=== PATIENT | male | born 1940 | race Caucasian/White ===

== ENCOUNTER 2019-04-15 20:34 | Emergency (ER) | payer MEDICARE, OTHER, SELFPAY ==
[2019-04-15 20:45] VITALS: BP 137/74; PULSE 67; RESP 16; TEMP 36.9; O2SAT 97; BMI 27.7
[2019-04-15 22:12] LABS: Add Manual Diff / Slide Review NO; Basophils Absolute Auto 100 /uL (0-100); Basophils Percent Auto 0.9 % (0-2); Eosinophils Absolute Auto 400 /uL (0-450); Eosinophils Percent Auto 3.2 % (2-4); Hematocrit 38.8 % (41-53); Hemoglobin 13.1 g/dL (13.5-17.5); Lymphocytes Absolute Auto 2000 /uL (1100-4500); Lymphocytes Percent Auto 16.1 % (25-40); Mean Corpuscular HGB Conc 33.8 % (30-36); Mean Corpuscular Hemoglobin 32.2 PG (26-34); Mean Corpuscular Volume 95.4 fL (80-100); Monocytes Absolute Auto 1300 /uL (0-900); Neutrophils Absolute Auto 8400 /uL (1500-7000); Neutrophils Percent Auto 68.8 % (50-75); Platelet Count 235 X10^3/uL (150-400); Red Blood Cell Count 4.07 X10^6/uL (4.5-5.9); Red Cell Distribution Width 13.2 % (11.6-14.8); White Blood Cell Count 12.1 X10^3/uL (4.5-11.0)
--- NOTE | 2019-04-15 22:15 | ED.RECABL ---
HPI - Recheck/Abnormal Lab/Rx General Chief Complaint: Recheck/Abnormal Lab/Rx Stated Complaint: states blood clot after partial lung lobectomy Time Seen by Provider: 04/15/19 22:15 Source: patient Mode of arrival: Ambulatory Limitations: no limitations History of Present Illness HPI narrative: The patient underwent surgery about 5 weeks ago for lung cancer. He underwent RLL lobectomy at [place], [place]. He developed what this is earlier today. He had bright red blood. As the day goes on, the cough and hemoptysis has decreased. He has no associated chest pain or dyspnea. He has no lower extremity edema or calf tenderness. He is not anticoagulated. He has prior history of left lower lobe abscess at age 14. He quit smoking decades ago. He is having no fever or chills with current symptoms. He does not feel ill. He has not had issues with hemoptysis since the surgery. He had labs done by his doctor earlier today, he apparently had a high D-dimer. He has no history of PE, DVT, and he has no lower extremity discomfort at this time. 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 He explained the scarring from that prior abscesses left lung is scar tissue. The scar tissue can crack complete. During part is evaluation of assumed he had some bleeding from that area. Related Data Previous Rx's Medication Instructions Recorded amoxicillin-pot clavulanate 1 tab PO BID #14 tab 04/16/19 [Augmentin] Review of Systems Review of Systems ROS Unobtainable: All systems reviewed & are unremarkable except as noted in HPI and below Constitutional Constitutional: Denies chills, Denies fever(s), Denies lethargy and Denies weakness Eyes Eyes: Denies change in vision and Denies loss of vision ENT Ears, Nose, Mouth, and Throat: Denies change in voice, Denies epistaxis, Denies neck pain and Denies sore throat Cardiovascular Cardiovascular: Denies chest pain, Denies irregular heart rhythm, Denies lightheadedness, Denies palpitations, Denies dyspnea and Denies orthopnea Respiratory Respiratory: Reports cough, Denies dyspnea and Denies wheezing Comments: Hemoptysis Gastrointestinal Gastrointestinal: Denies abdominal pain, Denies change in bowel habits, Denies diarrhea, Denies nausea and Denies vomiting Genitourinary Comments: No dysuria Musculoskeletal Musculoskeletal: Denies back pain and Denies neck pain Integumentary/Breasts Skin/Breast: Denies erythema and Denies rash Neurologic Neurologic: Denies confusion, Denies loss of vision and Denies weakness Psychiatric Psychiatric: Denies anxiety, Denies confusion and Denies depression Endocrine Endocrine: Denies palpitations Allergic/Immunologic Allergic/Immunologic: Denies wheezing [facility] Medical History Hypertension (Acute) Lung abscess (Acute) Lung cancer (Acute) Surgical History History of lung surgery (Acute) Social History Smoking Status: Former smoker Social History Smoking Status: Former smoker Exam Initial Vital Signs Initial Vital Signs: Vital Signs Temperature 98.5 F 04/15/19 20:45 Pulse Rate 67 04/15/19 20:45 Respiratory Rate 16 04/15/19 20:45 Blood Pressure 137/74 04/15/19 20:45 Pulse Oximetry 97 04/15/19 20:45 Const General: cooperative and well developed Nutritional Appearance: well nourished Orientation: alert, awake and oriented x3 HENMT Head: normocephalic and atraumatic Ears: external ears normal and TM's normal bilaterally Nose: external nose normal Face and sinus: sinuses nontender, face symmetric and No dry mucous membranes Mouth: oral mucosae normal and moist mucous membranes Teeth and gingiva: dentition normal Throat: tonsils normal and uvula midline Eyes General: appearance normal, both eyes and all related structures Eyelids: eyelids normal Conjunctivae: conjunctivae normal Sclera: sclerae normal Pupils: PERRL EOM: EOM intact bilaterally Neck Neck: normal visual inspection, trachea midline, No lymphadenopathy and No JVD Lymphatic: No lymphedema Chest Chest: normal inspection of the chest Resp Effort & Inspection: normal respiratory effort and able to speak in complete sentences Auscultation: clear to auscultation bilaterally, no rales, no rhonchi and no wheezes Cardio Rate: regular rate Rhythm: regular rhythm Heart Sounds: no click, no gallops, no murmurs and no rubs Pulses: normal peripheral pulses GI Inspection: non-distended Palpation: soft, no hepatosplenomegaly, No guarding, No pulsatile mass and No tender Auscultation: normal bowel sounds Back/Spine/Pelvis Back: No CVA tenderness Skin General: no rashes or lesions noted, No jaundice and No petechiae Neuro General: alert, oriented x3, gait normal and no focal motor deficits Speech: speech normal Extrem General: no clubbing, cyanosis or edema Other: Normal peripheral pulses Psych Appearance: well kempt Mental Status: mental status grossly normal Attitude: cooperative Thought Content: normal Judgment: judgment good Course Course Course Narrative: 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 Chest CT shows no evidence of PE. There is no bronchopleural fistula. Area noted along the right mediastinum, possibly seroma. I started the patient on Augmentin due to the hemoptysis. He will be discharged home on the same with instructions to follow up with his own doctor for re-evaluation next week. I have advised him to expect more hemoptysis but expect the hemoptysis to quickly resolve Orders Ordered: ED Orders 04/15/19 22:00 Complete Blood Count AUTO DIFF Stat Comprehensive Metabolic Panel Stat D Dimer Stat Partial Thromboplastin Time Stat Prothrombin Time INR Stat 04/15/19 22:24 CT angio chest PE protocol Stat Sodium Chloride (Normal Saline 0.9%) 1,000 mls @ 250 mls/hr IV CONT BETH Last Infusion: 04/15/19 23:46 Dose: 250 mls/hr Documented by: Admin: 04/15/19 22:57 Dose: 250 mls/hr Documented by: MADHAVI Discontinued Medications Amoxicillin/Clavulanate Potassium (Augmentin 875-125 Mg) 1 tab PO NOW ONE Stop: 04/16/19 01:06 Last Admin: 04/16/19 01:13 Dose: 1 tab Documented by: ANTON Vital Signs Vital signs: Vital Signs - 8 hr 04/15/19 20:45 Temperature 98.5 F Pulse Rate 67 Respiratory Rate 16 Blood Pressure 137/74 Pulse Oximetry 97 MDM - Recheck/Abnormal Lab/Rx Lab Data Result diagrams: 04/15/19 22:00 04/15/19 22:00 Labs: Lab Results 04/15/19 04/15/19 04/15/19 Range/Units 22:00 22:00 22:00 WBC 12.1 H (4.5-11.0) X10^3/uL RBC 4.07 L (4.5-5.9) X10^6/uL Hgb 13.1 L (13.5-17.5) g/dL Hct 38.8 L (41-53) % MCV 95.4 (80-100) fL MCH 32.2 (26-34) PG MCHC 33.8 (30-36) % RDW 13.2 (11.6-14.8) % Plt Count 235 (150-400) X10^3/uL Neut % (Auto) 68.8 (50-75) % Lymph % (Auto) 16.1 L (25-40) % [place] % (Auto) 11.0 (3-14) % Eos % (Auto) 3.2 (2-4) % Baso % (Auto) 0.9 (0-2) % Neut # (Auto) 8400 H (8199-5573) /uL Lymph # (Auto) 2000 (9928-0209) /uL [place] # (Auto) 1300 H (0-900) /uL Eos # (Auto) 400 (0-450) /uL Baso # (Auto) 100 (0-100) /uL PT 13.3 H (10.1-12.7) SECONDS INR 1.1 (0.9-1.3) APTT 33 (26.4-36.2) SECONDS D-Dimer 313 H (<230) ng/mL Sodium 138 (137-145) mmol/L Potassium 3.7 (3.4-5.1) mmol/L Chloride 103 (98-107) mmol/L Carbon Dioxide 29 (22-32) mmol/L BUN 13 (9-20) mg/dL Creatinine 1.10 (0.66-1.25) mg/dL Estimated GFR > 60.0 (>60) mL/min BUN/Creatinine Ratio 11.8 (6-22) Glucose 121 H (80-110) mg/dL Calcium 9.0 (8.4-10.2) mg/dL Total Bilirubin 0.6 (0.2-1.3) mg/dL AST 23 (17-59) IU/L ALT 16 L (21-72) IU/L Alkaline Phosphatase 118 (38-126) U/L Total Protein 7.1 (6.3-8.2) g/dL Albumin 3.5 (3.5-5.0) g/dL Globulin 3.6 (1.7-4.1) g/dL Albumin/Globulin Ratio 1.0 (1.0-2.8) Imaging Data CTA Chest: Radiologist's impression: No evidence of PE. No bronchopleural fistula identified. Fluid collection along the right mediastinum, likely representing postop seroma. ECG Data Attestation: I personally reviewed and interpreted this ECG as follows: Interpretation: Normal sinus rhythm rate 65 beats per minute. Minimal voltage criteria for LVH. Nonspecific ST T wave changes. No ectopy. No acute ST elevation. Discharge Plan Departure Patient Disposition: Home Clinical Impression: Hemoptysis Instructions: DI for Hemoptysis Activity Restrictions/Additional Instructions: Augmentin 2 times daily as prescribed. Expect to cough up a little more blood, but expect the bloody cough to stop in the next few days. Follow up with your doctor next week to for re-evaluation. Return here if there is significant increase in the blood coming from her lungs. Prescriptions: New amoxicillin-pot clavulanate [Augmentin] 875-125 mg tablet 1 tab PO BID Qty: 14 RF: 0 Referrals: Luis Armando Boyle MD [Primary Care Provider] -
[2019-04-15 22:19] LABS: INR 1.1 (0.9-1.3); Prothrombin Time 13.3 SECONDS (10.1-12.7)
[2019-04-15 22:22] LABS: D Dimer 313 ng/mL (<230); PTT Partial Thromboplastin Tim 33 SECONDS (26.4-36.2)
--- NOTE | 2019-04-15 22:24 | DI.CT.S_ITS ---
PROCEDURE: CT ANGIO CHEST PE PROTOCOL INDICATIONS: Hemoptysis. RLL resection 5 weeks ago due to cancer. TECHNIQUE: After the administration of intravenous contrast, 2 mm thick sections acquired from the pulmonary apices to the posterior costophrenic angles. 3-dimensional maximum intensity projection (MIP) coronal and sagittal reformats were then acquired through the thorax. For radiation dose reduction, the following was used: automated exposure control, adjustment of mA and/or kV according to patient size. COMPARISON: None. FINDINGS: Image quality: Pulmonary arteries: Pulmonary arteries are normal in size, and demonstrate no intraluminal filling defects to suggest central pulmonary embolism. Lungs and pleura: There are postoperative changes from right upper lobe resection with a smoothly marginated medial right mediastinal collection measuring approximately 4.3 x 3.6 cm measuring 50 Hounsfield units. The opacified vessels are noted to be displaced away from this collection. No internal solid components or enhancement identified. This likely represents a postoperative fluid collection given recent surgery. Minimal, patchy dependent ground glass opacities are favored to represent atelectasis. Mild bibasilar bronchiectasis more pronounced on the left with minimal right basilar subpleural reticulation. No focal consolidation. There is a 4 mm peripheral nodule in the left upper lobe seen on image 106, series 5. No pneumothorax. Trace right pleural effusion. Central and peripheral airways are patent. Mucous is noted in the dependent portions of the mid trachea. Mediastinum: Heart size is normal, without pericardial effusion. Scattered atherosclerotic calcifications of the coronary arteries are noted. No mediastinal or hilar adenopathy. Thoracic aorta is normal in caliber and enhancement. Esophagus is normal in caliber, without hiatal hernia. Bones and chest wall: No suspicious bony lesions. Multilevel spondylosis of the imaged spine. No acute compression fractures. Ribs and thoracic spine appear intact throughout. Thyroid gland is unremarkable. No axillary or supraclavicular adenopathy. Abdomen: Surgical clips are noted in the midline upper abdomen near the gastroesophageal junction. Large exophytic left renal cysts. Remainder of the visualized upper abdominal solid organs appear normal in the early arterial phase of enhancement. IMPRESSION: 1. No acute pulmonary emboli. 2. Postoperative changes of right upper lobe resection with a smoothly marginated 4.3 x 3.6 cm higher than simple fluid attenuating focus along the medial margin of the right upper mediastinum likely representing a postoperative fluid collection. 3. Minimal right and mild left bibasilar traction bronchiectasis with minimal right basilar subpleural reticulation possibly representing early fibrotic change/scarring. 4. Minimal dependent atelectasis. No focal consolidation or acute air space disease. 5. Other chronic findings as above. No significant discrepancy with the manufacturing shift supervisor radiology preliminary report. Dictated by: Alexis Marin M.D. on 04/16/2019 at 9:09 Approved by: Alexis Marin M.D. on 04/16/2019 at 9:26
[2019-04-15 22:26] LABS: Alanine Aminotransferase 16 IU/L (21-72); Albumin 3.5 g/dL (3.5-5.0); Alkaline Phosphatase 118 U/L (38-126); Aspartate Aminotransferase 23 IU/L (17-59); BUN Creatinine Ratio 11.8 (6-22); Bilirubin Total 0.6 mg/dL (0.2-1.3); Blood Urea Nitrogen 13 mg/dL (9-20); Carbon Dioxide 29 mmol/L (22-32); Chloride 103 mmol/L (98-107); Estimated Glomerular Filt Rate > 60.0 mL/min (>60); Globulin 3.6 g/dL (1.7-4.1); Glucose 121 mg/dL (80-110); HEMOLYSIS < 15 (0-50); Potassium 3.7 mmol/L (3.4-5.1); Sodium 138 mmol/L (137-145); Total Protein 7.1 g/dL (6.3-8.2)
[2019-04-15] MEDS: SODIUM CHLORIDE 0.9% 1,000 ML 250 ML IV (22:57)
[2019-04-16] MEDS: AMOXICILLIN/CLAV 875/125 MG 1 TAB PO (01:13)
[2019-04-16 01:23] VITALS: BP 153/75; PULSE 66; O2SAT 98
== END 2019-04-16 01:23 | disposition home or self-care (01) ==
PROVIDERS: Emergency Provider Emergency Medicine; Family Provider Family Medicine; PCP Family Medicine
DX: R04.2 Hemoptysis (principal); Z98.890 Other specified postprocedural states; R07.9 Chest pain, unspecified; I10 Essential (primary) hypertension
CPT/HCPCS: 36415; 71275; 80053; 85025; 85379; 85610; 85730; 93005; 93010; 96360; 99283; 99285; Q9967

== ENCOUNTER 2019-07-27 11:28 | Emergency (ER) | payer MEDICARE, OTHER, SELFPAY ==
[2019-07-27 11:46] VITALS: BP 113/71; PULSE 87; RESP 15; TEMP 36.6; O2SAT 100; BMI 29.5
--- NOTE | 2019-07-27 11:49 | DI.RAD.S_ITS ---
PROCEDURE: XR CHEST 1V INDICATIONS: chest pain TECHNIQUE: One view of the chest was acquired. COMPARISON: [facility], RG, XR CXR 2 VIEW, 11/08/1978, 13:24. [facility], RG, XR CXR 1 VIEW, 10/12/1981, 13:27. [facility], RG, XR CXR 1 VIEW, 10/26/1983, 13:22. [facility], CT, CT ANGIO CHEST PE PROTOCOL, 04/15/2019, 22:29. FINDINGS: Surgical changes and devices: None. Lungs and pleura: Right-sided volume loss is seen, as before. No focal infiltrates are seen. No pneumothorax or large pleural effusion. Mediastinum: Mediastinal contours appear normal. Heart size is at the upper limits of normal. Bones and chest wall: No suspicious bony lesions. Age-appropriate bony degenerative changes are seen. Overlying soft tissues appear unremarkable. IMPRESSION: Right-sided volume loss, from prior lung resection. No acute abnormality is seen on this portable chest study. Dictated by: Eros Echavarria M.D. on 07/27/2019 at 11:38 Approved by: Eros Echavarria M.D. on 07/27/2019 at 11:40
--- NOTE | 2019-07-27 11:54 | ED_ITS ---
HPI - Chest Pain General Chief Complaint: Chest Pain Stated Complaint: 4 am L shoulder pain since throbbing Time Seen by Provider: 07/27/19 11:46 Source: patient Mode of arrival: Ambulatory Limitations: no limitations History of Present Illness HPI narrative: Patient is a 78-year-old male who presents with right shoulder pain. He says it woke him from his sleep this morning around 4:00 a.m.. It does not hurt to move he does feel like it's spreading a little to his chest now. He says he was not feeling well yesterday he thinks he has influenza but he has not yet been tested. For the last 4 days he has had chills and upper respiratory symptoms so he has been lying on the couch. Which is what he was doing yesterday. He denies any shortness of breath or cough. He is currently afebrile here. He did take aspirin prior to arrival he continues to have right shoulder pain which he says is deep inside the joint. Onset (ago): hour(s) Onset: during rest Related Data Previous Rx's Medication Instructions Recorded amoxicillin-pot clavulanate 1 tab PO BID #14 tab 04/16/19 [Augmentin] Allergies Allergy/AdvReac Type Severity Reaction Status Date / Time No Known Drug Allergies Allergy Verified 07/27/19 11:46 Review of Systems Review of Systems Narrative: GENERAL: Denies chills, fatigue, malaise, fever, sweats, travel HEENT: Denies sinus pain, ear pain, sore throat, difficulty swallowing, neck pain RESPIRATORY: Denies dyspnea, cough, wheezing, hemoptysis, sputum. CARDIOVASCULAR: Denies chest pain, palpitations, orthopnea, edema GASTROINTESTINAL: Denies nausea, vomiting, abdominal pain, diarrhea, constipation, melena. : Denies dysuria, frequency, incontinence, hematuria, urinary retention, flank pain. MUSCULOSKELETAL: See HPI SKIN: No rash, no erythema, no pruritus NEUROLOGIC: Denies weakness, dizziness, headache, numbness, change in speech, confusion PSYCHIATRIC: No concerning psychosocial issues. 12 point review of systems is negative except for those stated above and HPI Patient History Medical History Hypertension (Acute) Lung abscess (Acute) Lung cancer (Acute) Surgical History History of lung surgery (Acute) Social History Smoking Status: Former smoker Smoking Status: Former smoker alcohol intake frequency: holidays/special occasions only Substance Use Type: marijuana Exam Initial Vital Signs Initial Vital Signs: Vital Signs Temperature 97.8 F 07/27/19 11:46 Pulse Rate 87 07/27/19 11:46 Respiratory Rate 15 07/27/19 11:46 Blood Pressure 113/71 07/27/19 11:46 Pulse Oximetry 100 07/27/19 11:46 GENERAL: Alert pleasant well-appearing elderly male and in no acute distress. HEENT: Head atraumatic,EOMI, pupils reactive, face symmetric, moist mucous membranes CARDIOVASCULAR: Regular rate and rhythm without murmurs, rubs or gallops. RESPIRATORY: Breath sounds equal bilaterally, no wheezes rales or rhonchi. ABDOMEN: Soft, nontender. Normoactive bowel sounds all 4 quadrants. No guarding or rebound. EXTREMITIES: Normal range of motion, no clubbing or edema. Neurovascularly intact NEUROLOGICAL: Alert and oriented x4.Normal gait and speech. Cranial nerves II through XII grossly intact. SKIN: Warm, dry, no laceration, no petechiae, no rashes or lesions. Course Orders Ordered: ED Orders 07/27/19 11:49 XR chest 1V Stat EKG-12 Lead Stat 07/27/19 12:05 Complete Blood Count AUTO DIFF Stat Comprehensive Metabolic Panel Stat Lipase Stat Partial Thromboplastin Time Stat Prothrombin Time INR Stat Troponin & CK Cardiac Panel Stat 07/27/19 12:20 Influenza A & B (PCR) Stat Discontinued Medications Ketorolac Tromethamine (Toradol) 15 mg IV NOW ONE Stop: 07/27/19 13:22 Last Admin: 07/27/19 13:35 Dose: 15 mg Documented by: LOUIE Morphine Sulfate (Morphine) 2 mg IV NOW ONE Stop: 07/27/19 12:06 Last Admin: 07/27/19 12:34 Dose: 2 mg Documented by: LOUIE Vital Signs Vital signs: Vital Signs - 8 hr 07/27/19 11:46 07/27/19 12:30 07/27/19 13:30 Temperature 97.8 F Pulse Rate 87 63 62 Respiratory Rate 15 12 16 Blood Pressure 113/71 Blood Pressure [Left Arm] 120/67 104/73 Pulse Oximetry 100 97 97 MDM - Chest Pain Lab Data Attestation: I reviewed the patient's lab results. Result diagrams: 07/27/19 12:05 07/27/19 12:05 Labs: Lab Results 07/27/19 07/27/19 07/27/19 Range/Units 12: 12:05 12:05 WBC 5.3 (4.5-11.0) X10^3/uL RBC 4.62 (4.5-5.9) X10^6/uL Hgb 15.0 (13.5-17.5) g/dL Hct 42.4 (41-53) % MCV 91.8 (80-100) fL MCH 32.5 (26-34) PG MCHC 35.4 (30-36) % RDW 13.6 (11.6-14.8) % Plt Count 256 (150-400) X10^3/uL Neut % (Auto) 57.7 (50-75) % Lymph % (Auto) 24.2 L (25-40) % [place] % (Auto) 15.8 H (3-14) % Eos % (Auto) 1.0 L (2-4) % Baso % (Auto) 1.3 (0-2) % Neut # (Auto) 3000 (9390-9044) /uL Lymph # (Auto) 1300 (8809-4300) /uL [place] # (Auto) 800 (0-900) /uL Eos # (Auto) 100 (0-450) /uL Baso # (Auto) 100 (0-100) /uL PT 12.1 (10.1-12.7) SECONDS INR 1.0 (0.9-1.3) APTT 34 (26.4-36.2) SECONDS Sodium 140 (137-145) mmol/L Potassium 3.3 L (3.4-5.1) mmol/L Chloride 106 (98-107) mmol/L Carbon Dioxide 24 (22-32) mmol/L BUN 15 (9-20) mg/dL Creatinine 1.20 (0.66-1.25) mg/dL Estimated GFR 58.9 L (>60) mL/min BUN/Creatinine Ratio 12.5 (6-22) Glucose 108 (80-110) mg/dL Calcium 8.9 (8.4-10.2) mg/dL Total Bilirubin 0.5 (0.2-1.3) mg/dL AST 28 (17-59) IU/L ALT 17 (<50) IU/L Alkaline Phosphatase 90 (38-126) U/L Total Creatine Kinase 77 (55-170) U/L CK-MB (CK-2) TNP CK-MB (CK-2) Rel Index TNP Troponin I < 0.012 (0.01-0.034) ng/mL Total Protein 7.1 (6.3-8.2) g/dL Albumin 3.9 (3.5-5.0) g/dL Globulin 3.2 (1.7-4.1) g/dL Albumin/Globulin Ratio 1.2 (1.0-2.8) Lipase 67 (23-300) U/L Influenza A (RT-PCR) (NEGATIVE) Influenza B (RT-PCR) (NEGATIVE) 07/27/19 Range/Units 12:20 WBC (4.5-11.0) X10^3/uL RBC (4.5-5.9) X10^6/uL Hgb (13.5-17.5) g/dL Hct (41-53) % MCV (80-100) fL MCH (26-34) PG MCHC (30-36) % RDW (11.6-14.8) % Plt Count (150-400) X10^3/uL Neut % (Auto) (50-75) % Lymph % (Auto) (25-40) % [place] % (Auto) (3-14) % Eos % (Auto) (2-4) % Baso % (Auto) (0-2) % Neut # (Auto) (3703-3943) /uL Lymph # (Auto) (1498-7316) /uL [place] # (Auto) (0-900) /uL Eos # (Auto) (0-450) /uL Baso # (Auto) (0-100) /uL PT (10.1-12.7) SECONDS INR (0.9-1.3) APTT (26.4-36.2) SECONDS Sodium (137-145) mmol/L Potassium (3.4-5.1) mmol/L Chloride (98-107) mmol/L Carbon Dioxide (22-32) mmol/L BUN (9-20) mg/dL Creatinine (0.66-1.25) mg/dL Estimated GFR (>60) mL/min BUN/Creatinine Ratio (6-22) Glucose (80-110) mg/dL Calcium (8.4-10.2) mg/dL Total Bilirubin (0.2-1.3) mg/dL AST (17-59) IU/L ALT (<50) IU/L Alkaline Phosphatase (38-126) U/L Total Creatine Kinase (55-170) U/L CK-MB (CK-2) CK-MB (CK-2) Rel Index Troponin I (0.01-0.034) ng/mL Total Protein (6.3-8.2) g/dL Albumin (3.5-5.0) g/dL Globulin (1.7-4.1) g/dL Albumin/Globulin Ratio (1.0-2.8) Lipase (23-300) U/L Influenza A (RT-PCR) Flu a negative (NEGATIVE) Influenza B (RT-PCR) Flu b positive H (NEGATIVE) Imaging Data Chest x-ray: Radiologist's Impression: PROCEDURE: XR CHEST 1V INDICATIONS: chest pain TECHNIQUE: One view of the chest was acquired. COMPARISON: [facility], , XR CXR 2 VIEW, 11/08/1978, 13:24. [facility], RG, XR CXR 1 VIEW, 10/12/1981, 13:27. [facility], RG, XR CXR 1 VIEW, 10/26/1983, 13:22. [facility], CT, CT ANGIO CHEST PE PROTOCOL, 04/15/2019, 22:29. FINDINGS: Surgical changes and devices: None. Lungs and pleura: Right-sided volume loss is seen, as before. No focal infiltrates are seen. No pneumothorax or large pleural effusion. Mediastinum: Mediastinal contours appear normal. Heart size is at the upper limits of normal. Bones and chest wall: No suspicious bony lesions. Age-appropriate bony degenerative changes are seen. Overlying soft tissues appear unremarkable. IMPRESSION: Right-sided volume loss, from prior lung resection. No acute abnormality is seen on this portable chest study. Dictated by: Eros Echavarria M.D. on 07/27/2019 at 11:38 ECG Data Attestation: I personally reviewed and interpreted this ECG as follows: Prior ECG tracings: available for review Interpretation: Sinus rhythm rate 68 p.r. interval 177 QRS [address] elevation depression or T-wave inversions similar to previous EKG MDM Narrative Medical decision making narrative: Patient has been having pain for more than 6 hours, troponin is negative. Positive for influenza. Morphine has helped with his right shoulder pain. At this time he is out of the window to benefit from Tamiflu. Discharge Plan Departure Patient Disposition: Home Clinical Impression: Influenza B Discharge Date/Time: 07/27/19 13:58 Instructions: DI for Influenza -- Adult Activity Restrictions/Additional Instructions: *You have been diagnosed with influenza B *What to do: At this time no indication for any medication influenza will likely run its course. This is also likely contributing to her joint pain. Blood work and chest x-ray are overall reassuring. Recommend that you rest and fluids *Continue to take medications as directed Tylenol 650 mg every 4-6 hours if needed for pain or fever Ibuprofen 600 mg every 6-8 hours as needed for pain *Follow up with your primary care provider in 2-3 days *Return to ER if you should have increasing chest pain shortness of breath fever not controlled or any new, worsening or concerning symptoms Prescriptions: No Action amoxicillin-pot clavulanate [Augmentin] 875-125 mg tablet 1 tab PO BID Qty: 14 RF: 0 Referrals: Benitez Crook MD [Primary Care Provider] -
[2019-07-27 12:15] LABS: Add Manual Diff / Slide Review NO; Basophils Absolute Auto 100 /uL (0-100); Basophils Percent Auto 1.3 % (0-2); Eosinophils Absolute Auto 100 /uL (0-450); Hematocrit 42.4 % (41-53); Lymphocytes Absolute Auto 1300 /uL (1100-4500); Lymphocytes Percent Auto 24.2 % (25-40); Mean Corpuscular HGB Conc 35.4 % (30-36); Mean Corpuscular Hemoglobin 32.5 PG (26-34); Mean Corpuscular Volume 91.8 fL (80-100); Monocytes Absolute Auto 800 /uL (0-900); Monocytes Percent Auto 15.8 % (3-14); Neutrophils Absolute Auto 3000 /uL (1500-7000); Neutrophils Percent Auto 57.7 % (50-75); Platelet Count 256 X10^3/uL (150-400); Red Blood Cell Count 4.62 X10^6/uL (4.5-5.9); Red Cell Distribution Width 13.6 % (11.6-14.8); White Blood Cell Count 5.3 X10^3/uL (4.5-11.0)
--- NOTE | 2019-07-27 12:27 | PC.NURSE ---
woke 0400 with sharp throbbing pain right shoulder into chest feels like something was stuck there
[2019-07-27 12:30] VITALS: BP 120/67; PULSE 63; RESP 12; O2SAT 97
[2019-07-27] MEDS: MORPHINE 2 MG/ML INJ IV (12:34)
[2019-07-27 12:45] LABS: Prothrombin Time 12.1 SECONDS (10.1-12.7)
[2019-07-27 12:48] LABS: PTT Partial Thromboplastin Tim 34 SECONDS (26.4-36.2)
[2019-07-27 12:49] LABS: Alanine Aminotransferase 17 IU/L (<50); Albumin 3.9 g/dL (3.5-5.0); Albumin Globulin Ratio 1.2 (1.0-2.8); Alkaline Phosphatase 90 U/L (38-126); Aspartate Aminotransferase 28 IU/L (17-59); BUN Creatinine Ratio 12.5 (6-22); Bilirubin Total 0.5 mg/dL (0.2-1.3); Blood Urea Nitrogen 15 mg/dL (9-20); Calcium 8.9 mg/dL (8.4-10.2); Carbon Dioxide 24 mmol/L (22-32); Chloride 106 mmol/L (98-107); Creatine Kinase 77 U/L (55-170); Estimated Glomerular Filt Rate 58.9 mL/min (>60); Globulin 3.2 g/dL (1.7-4.1); Glucose 108 mg/dL (80-110); HEMOLYSIS < 15 (0-50); Lipase 67 U/L (23-300); Potassium 3.3 mmol/L (3.4-5.1); Sodium 140 mmol/L (137-145); Total Protein 7.1 g/dL (6.3-8.2)
[2019-07-27 12:55] LABS: Influenza A - CEPHEID Flu A NEGATIVE (NEGATIVE); Influenza B - CEPHEID Flu B POSITIVE (NEGATIVE)
[2019-07-27 13:01] LABS: Troponin I < 0.012 ng/mL (0.01-0.034)
[2019-07-27 13:30] VITALS: BP 104/73; PULSE 62; RESP 16; O2SAT 97
[2019-07-27] MEDS: KETOROLAC 60 MG/2 ML VIAL 15 MG IV (13:35)
== END 2019-07-27 13:58 | disposition home or self-care (01) ==
PROVIDERS: Emergency Provider Emergency Medicine; PCP Internal Medicine
DX: J10.1 Influenza due to other identified influenza virus with other respiratory manifestations (principal); M25.511 Pain in right shoulder; R07.9 Chest pain, unspecified
CPT/HCPCS: 36415; 71045; 80053; 82550; 83690; 84484; 85025; 85610; 85730; 87502; 93005; 96374; 96375; 99284; 99285; J1885; J2270

== ENCOUNTER → 2019-11-06 09:48 | Outpatient (CLI) | payer MEDICARE, OTHER, SELFPAY ==
--- NOTE | 2019-11-06 | DI.NM.S_ITS ---
PROCEDURE: NM TRIP PERF SPECT R&S PHARM Rest and pharmacological stress myocardial perfusion SPECT with gated imaging and ejection fraction RADIOPHARMACEUTICAL: 12 mCi Tc-99m tetrafosmin IV at rest and 24.7 mCi Tc-99m tetrafosmin IV at peak effect of pharmacological stress. [id number] was performed. INDICATIONS: Chest pain, unspecified TECHNIQUE: Radiopharmaceutical was injected at peak stress test, and also at rest. SPECT images were obtained. SPECT myocardial perfusion images were displayed in short axis, horizontal long axis, and vertical long axis views. Gated images were reviewed using [employer] software. COMPARISON: None. CARDIAC STRESS: A pharmacologic stress test was performed under the supervision of an attending staff, using an infusion of Lexiscan . Hemodynamic data: There is normal blood pressure and heart rate response to pharmacologic stress. Symptoms: The patient denied anginal chest pain. Aminophylline: Not used. EKG: Abnormal response with developing PVCs in form of bigeminy and up to 2 mm horizontal and downsloping ST depression in inferior and lateral leads.. FINDINGS: Raw data: There is good myocardial uptake of radiotracer. No significant motion artifacts. Mxoo-ki-[id number] ratio is 0.47 (normal is less than 0.38 for tetrafosmin tracer). Left ventricle function: Gated images demonstrate normal left ventricular wall thickening. No segmental wall motion abnormalities. No transient ischemic dilation; TID is 0.94 (normal less than 1.3). Left ventricle resting end diastolic volume is 141 mL. Left ventricle stress ejection fraction is 73% ; normal range is above 45%. Myocardial perfusion: There is a small size, mild perfusion defect from the apical to mid inferior and inferolateral defect on stress which is present to a lesser extent and ,mostly involving the apex at rest. This is consistent with ischemia. IMPRESSION: -Abnormal myocardial perfusion study. With evidence of small to moderate size, mild reversible ischemia in the mid to apical inferolateral wall. -SSS=4. -Mildly dilated left ventricle. -Abnormal lung heart ratio. Please correlate clinically. Dictated by: Luis Armando Snyder M.D. on 11/06/2019 at 18:47 Approved by: Luis Armando Snyder M.D. on 11/06/2019 at 18:55
== END ==
PROVIDERS: PCP Internal Medicine; Referring Provider Family Medicine; Visit Provider Family Medicine
DX: I25.9 Chronic ischemic heart disease, unspecified (principal); R07.9 Chest pain, unspecified; R94.39 Abnormal result of other cardiovascular function study; R60.9 Edema, unspecified
CPT/HCPCS: 78452; 93017; A9502; J2785

== ENCOUNTER → 2020-02-27 07:37 | Outpatient (CLI) | payer MEDICARE, OTHER, SELFPAY ==
--- NOTE | 2020-02-27 | DI.MRI.S_ITS ---
PROCEDURE: MR HEAD/BRAIN WO CON INDICATIONS: Dizziness and giddiness,Tremor, unspecified TECHNIQUE: Non-contrast axial T1 spin echo, axial T2 fast spin echo, sagittal and axial FLAIR, coronal T2 fast spin echo, axial gradient echo, axial diffusion and ADC through the brain. COMPARISON: None. FINDINGS: Image quality: Excellent. CSF spaces: Ventricles appear symmetric in size and shape. Basal cisterns are patent. No extra-axial fluid collections. Brain: No intracranial bleeds or mass effects. There is a right posterior parafalcine 12 mm diameter high T1 and low FLAIR/gradient echo signal intensity focus at the medial aspect of the right superior parietal lobe. There is cerebral volume loss for age. There are periventricular and deep white matter chronic small vessel ischemic changes. Brainstem appears normal. Diffusion-weighted images show no acute ischemic insults. No chronic ischemic insults. Normal intravascular flow voids are present. Skull and face: Calvarial bone marrow is normal in signal. Orbits are normal. Sinuses: Moderate right mastoid fluid. Sinuses and mastoids are otherwise clear. IMPRESSION: 1. No acute process. 2. No recent infarct. 3. Mild volume loss and small vessel ischemic disease. 4. Posterior parafalcine focus as described above. Differential considerations include small focus of calcification versus lipoma versus ossified meningioma. There is no associated mass effect. This could be further assessed with postcontrast brain MRI, if clinically indicated. 5. Right mastoid fluid. Dictated by: Monique Garcia M.D. on 02/27/2020 at 8:35 Approved by: Monique Garcia M.D. on 02/27/2020 at 8:38
== END ==
PROVIDERS: PCP Internal Medicine; Referring Provider Internal Medicine; Visit Provider Family Medicine
DX: R42 Dizziness and giddiness (principal); R25.1 Tremor, unspecified
CPT/HCPCS: 70551

== ENCOUNTER → 2020-03-25 15:08 | Outpatient (CLI) | payer MEDICARE, OTHER, SELFPAY ==
--- NOTE | 2020-03-25 15:16 | DI.RAD.S_ITS ---
PROCEDURE: XR KNEE RT 3V INDICATIONS: RT KNEE PAIN TECHNIQUE: 3 views of the knee were acquired. COMPARISON: None. FINDINGS: Bones: No fractures or dislocations. No suspicious bony lesions. Soft tissues: No joint effusion. No suspicious soft tissue calcifications. IMPRESSION: Mild degenerative knee joint space narrowing, best seen at the medial compartment. No effusion or loose body found. Dictated by: Mil Resendiz M.D. on 03/25/2020 at 16:36 Approved by: Mil Resendiz M.D. on 03/25/2020 at 16:36
== END ==
PROVIDERS: PCP Internal Medicine; Referring Provider Physician Assistant; Visit Provider Physician Assistant
DX: M25.561 Pain in right knee (principal)
CPT/HCPCS: 73562

== ENCOUNTER 2020-07-31 16:15 | Observation (INO) | payer MEDICARE, OTHER, SELFPAY ==
[2020-07-31] VITALS (12 sets, daily range): BP systolic 134–173; BP diastolic 64–78; PULSE 48–85; RESP 16–20; TEMP 36.5–36.8; O2SAT 96–99; BMI 27.8
--- NOTE | 2020-07-31 16:37 | DI.RAD.S_ITS ---
PROCEDURE: XR CHEST 2V INDICATIONS: Positive COVID TECHNIQUE: 2 views of the chest were acquired. COMPARISON: [facility], CR, XR CHEST 1V, 07/27/2019, 12:19. FINDINGS: Surgical changes and devices: Clips in the region of the gastric cardia which may be due to prior hernia repair or gastric bypass. Lungs and pleura: Question of subtle bilateral airspace opacity. No consolidative opacity. No pleural effusions or pneumothorax. Mediastinum: Mediastinal contours are normal. Heart size appears enlarged. Bones and chest wall: No suspicious bony abnormalities. Soft tissues appear unremarkable. IMPRESSION: Question of mild bilateral airspace opacity. Dictated by: Christiano Aly M.D. on 07/31/2020 at 16:19 Approved by: Christiano Aly M.D. on 07/31/2020 at 16:22
--- NOTE | 2020-07-31 18:12 | ED.URI ---
HPI - URI/Sore Throat General Chief Complaint: Upper Respiratory Symptoms Stated Complaint: covid positive Time Seen by Provider: 07/31/20 16:29 Source: patient Mode of arrival: Ambulatory Limitations: no limitations History of Present Illness HPI Narrative: 79M former smoker with history of COPD, lung CA, and partial lung resection presents with ongoing weakness, cough, and SOB over the past week or so. He and his have similar symptoms and both tested positive for COVID and were notified this morning. He has had chills, but denies any measured fever. He feels quite fatigued and significantly SOB with minimal exertion. He aches all over and denies N/V/D. Complaint: cough Onset (ago): day(s) Duration: constant and progressively worsening Severity: moderate Relieving factors: rest Exacerbating factors: exertion Able to tolerate fluids by mouth: Yes Context: sick contacts Associated symptoms: fever, chills, myalgias, cough and shortness of breath Treatments prior to arrival: none Related Data Home Medications Medication Instructions Recorded Confirmed amlodipine 5 mg PO DAILY 07/31/20 07/31/20 indomethacin 50 mg PO BID 07/31/20 07/31/20 trazodone 25 mg PO DAILY 07/31/20 07/31/20 citalopram 20 mg PO DAILY 08/01/20 08/01/20 citalopram 40 mg PO DAILY 08/01/20 08/01/20 Allergies Allergy/AdvReac Type Severity Reaction Status Date / Time No Known Drug Allergies Allergy Verified 07/31/20 16:33 Review of Systems Constitutional Constitutional: Reports body ache(s), Reports chills, Denies fatigue, Reports fever(s), Denies frequent falls, Reports lethargy and Reports weakness Eyes Eyes: Denies change in vision, Denies eye discharge, Denies irritation and Denies loss of vision ENT Ears, Nose, Mouth, and Throat: Denies change in voice, Denies dizziness, Denies neck pain, Denies sore throat and Denies throat swelling Cardiovascular Cardiovascular: Denies chest pain, Denies irregular heart rhythm, Denies lightheadedness, Denies palpitations, Reports dyspnea, Reports dyspnea on exertion and Denies orthopnea Respiratory Respiratory: Reports cough, Reports dyspnea, Reports dyspnea on exertion and Denies wheezing Gastrointestinal Gastrointestinal: Denies abdominal pain, Denies change in bowel habits, Denies diarrhea, Denies nausea and Denies vomiting Musculoskeletal Musculoskeletal: Denies neck pain and Denies numbness Integumentary/Breasts Skin/Breast: Denies pruritus, Denies erythema, Denies rash and Denies wounds Neurologic Neurologic: Denies behavioral changes, Denies confusion, Denies dizziness, Denies frequent falls, Denies loss of vision, Denies numbness and Reports weakness Psychiatric Psychiatric: Denies anxiety, Denies behavioral changes, Denies confusion, Denies depression, Denies homicidal ideation and Denies suicidal ideation Endocrine Endocrine: Denies fatigue, Denies flushing and Denies palpitations Hematologic/Lymphatic Hematologic/Lymphatic: Denies easy bruising Allergic/Immunologic Allergic/Immunologic: Denies urticaria, Denies throat swelling and Denies wheezing Patient History Medical History Atrial fibrillation Excessive anger Hypertension Lung abscess Lung cancer Polyneuropathy Surgical History History of cataract surgery History of lung surgery History of repair of hiatal hernia Family History Father No problems noted. Mother Pulmonary fibrosis Hypertriglyceridemia, familial Social History household members: spouse Smoking Status: Former smoker alcohol intake: current Smoking Status: Former smoker alcohol intake frequency: a few times a month Substance Use Type: marijuana Exam Narrative Exam Narrative: GENERAL: [79] year old patient appears stated age. Well-nourished, well-developed patient, in obvious distress. The activity of walking in from the waiting room or removed his jacket makes him significantly short of breath and conversationally dyspneic HEAD: Atraumatic. Normocephalic. EYES: Pupils equal round and reactive. Extraocular motions intact. No scleral icterus. No injection or drainage. ENT: Nose without bleeding, purulent drainage. Throat without erythema, tonsillar hypertrophy or exudate. Airway patent. NECK: Trachea midline. Non tender CARDIOVASCULAR: Regular rate and rhythm without murmurs, gallops, or rubs. RESPIRATORY: Decreased breath sounds bilaterally with crackles in bilateral bases right greater than left. GASTROINTESTINAL: Abdomen soft, non-tender, nondistended. EXTREMITIES: No edema or joint tenderness. BACK: Nontender without deformity or crepitance. No flank tenderness. NEURO: AOx3. SKIN: No rash or erythema of visible areas Initial Vital Signs Initial Vital Signs: Vital Signs Temperature 98.2 F 07/31/20 16:33 Pulse Rate 59 L 07/31/20 16:33 Respiratory Rate 20 07/31/20 16:33 Blood Pressure 161/75 H 07/31/20 16:33 Pulse Oximetry 99 07/31/20 16:33 Course Course Course Narrative: COVID-GRAM Critical Illness Risk Score from [employer] on 08/01/2020 All calculations should be rechecked by clinician prior to use RESULT SUMMARY: 181 points COVID-GRAM Risk Score 82.1 % Risk of critical illness, defined by admission to the intensive care unit (ICU), invasive ventilation, or High risk Risk group INPUTS: X-ray abnormality ?> 1 = Yes Age ?> 79 years Hemoptysis ?> 0 = No Dyspnea ?> 1 = Yes Unconsciousness ?> 0 = No Number of comorbidities ?> 2 = 2 Cancer history ?> 1 = Yes Neutrophil-lymphocyte ratio (NLR) ?> 1.91 Lactate dehydrogenase ?> 323 U/L Direct bilirubin ?> 0.4 mg/dL Orders Ordered: ED Orders 07/31/20 18:45 C-Reactive Protein Quant Stat Complete Blood Count AUTO DIFF Stat Comprehensive Metabolic Panel Stat D Dimer Stat Ferritin Stat Lactate (Lactic Acid) Stat Lactate Dehydrogenase Stat NT-proBNP (BNP-Adult 18+) Stat Procalcitonin Stat Troponin & CK Cardiac Panel Stat 07/31/20 19:55 Blood Culture Stat Acetaminophen (Acetaminophen 325 Mg Tablet) 650 mg PO Q4HR PRN PRN Reason: Fever/Mild Pain (1-3) Amlodipine Besylate (Amlodipine 5 Mg Tablet) 5 mg PO DAILY [facility] Citalopram Hydrobromide (Citalopram 10 Mg Tablet) 40 mg PO DAILY [facility] Citalopram Hydrobromide (Citalopram 10 Mg Tablet) 20 mg PO BEDTIME [facility] Last Admin: 08/01/20 01:03 Dose: 20 mg Documented by: JENNIFER Enoxaparin Sodium (Enoxaparin 40 Mg/0.4 Ml Syringe) 40 mg SUBCUT DAILY [facility] Famotidine (Famotidine 20 Mg Tablet) 20 mg PO BID [facility] Last Admin: 08/01/20 00:01 Dose: 20 mg Documented by: JENNIFER Influenza Virus Vaccine (Influenza Hd Vaccine 0.7 Ml Syringe) 0.7 ml IM .ONCE ONE Stop: 08/01/20 09:01 Loperamide HCl (Loperamide 2 Mg Capsule) 2 mg PO PRN PRN PRN Reason: Diarrhea Melatonin (Melatonin 3 Mg Tablet) 6 mg PO BEDTIME [facility] Last Admin: 07/31/20 23:48 Dose: 6 mg Documented by: JENNIFER Naloxone HCl (Naloxone 0.4 Mg/Ml Vial) 0.2 mg IV Q2MIN PRN PRN Reason: Opiate Reversal Ondansetron HCl (Ondansetron 4 Mg/2 Ml Inj) 4 mg IV Q8HR PRN PRN Reason: Nausea And Vomiting Oxycodone HCl (Oxycodone Ir 5 Mg Tablet) 5 mg PO Q4HR PRN PRN Reason: Pain, Moderate (4-6) Oxycodone HCl (Oxycodone Ir 10 Mg Tablet) 10 mg PO Q4HR PRN PRN Reason: Pain, Severe (7-10) Trazodone HCl (Trazodone 50 Mg Tablet) 25 mg PO BEDTIME [facility] Last Admin: 08/01/20 01:03 Dose: 25 mg Documented by: JENNIFER Discontinued Medications Acetaminophen (Acetaminophen 325 Mg Tablet) 650 mg PO NOW ONE Stop: 07/31/20 20:46 Last Admin: 07/31/20 20:49 Dose: 650 mg Documented by: ANNE Amlodipine Besylate (Amlodipine 5 Mg Tablet) 5 mg PO DAILY [facility] Citalopram Hydrobromide (Citalopram 10 Mg Tablet) 20 mg PO BEDTIME [facility] Trazodone HCl (Trazodone 50 Mg Tablet) 25 mg PO DAILY [facility] Vital Signs Vital signs: Vital Signs - 8 hr 07/31/20 18:50 07/31/20 19:00 07/31/20 19:30 Pulse Rate 56 L 55 L 52 L Respiratory Rate 18 18 Blood Pressure 143/77 H 146/76 H 138/65 Pulse Oximetry 98 98 97 07/31/20 20:00 Pulse Rate 52 L Respiratory Rate Blood Pressure 156/66 H Pulse Oximetry 97 MDM - URI/Sore Throat Lab Data Result diagrams: 07/31/20 18:45 07/31/20 18:45 Labs: Lab Results 07/31/20 07/31/20 07/31/20 Range/Units 18:45 18:45 18:45 WBC 3.3 L (4.5-11.0) X10^3/uL RBC 4.35 L (4.5-5.9) X10^6/uL Hgb 14.0 (13.5-17.5) g/dL Hct 41.0 (41-53) % MCV 94.4 (80-100) fL MCH 32.1 (26-34) PG MCHC 34.0 (30-36) % RDW 13.2 (11.6-14.8) % Plt Count 190 (150-400) X10^3/uL Neut % (Auto) 54.5 (50-75) % Lymph % (Auto) 28.4 (25-40) % Upson % (Auto) 15.0 H (3-14) % Eos % (Auto) 1.3 L (2-4) % Baso % (Auto) 0.8 (0-2) % Neut # (Auto) 1800 (1504-0208) /uL Lymph # (Auto) 1000 L (0782-5527) /uL Upson # (Auto) 500 (0-900) /uL Eos # (Auto) 0 (0-450) /uL Baso # (Auto) 0 (0-100) /uL D-Dimer < 200 (<230) ng/mL Sodium (137-145) mmol/L Potassium (3.4-5.1) mmol/L Chloride (98-107) mmol/L Carbon Dioxide (22-32) mmol/L BUN (9-20) mg/dL Creatinine (0.66-1.25) mg/dL Estimated GFR (>60) mL/min BUN/Creatinine Ratio (6-22) Glucose (80-110) mg/dL Lactate (0.7-2.1) mmol/L Calcium (8.4-10.2) mg/dL Magnesium (1.6-2.3) mg/dL Ferritin (18-464) ng/mL Total Bilirubin (0.2-1.3) mg/dL AST (17-59) IU/L ALT (<50) IU/L Alkaline Phosphatase (38-126) U/L Lactate Dehydrogenase (313-618) U/L Total Creatine Kinase (55-170) U/L CK-MB (CK-2) CK-MB (CK-2) Rel Index Troponin I (0.01-0.034) ng/mL C-Reactive Protein (<1.0) mg/dL NT-Pro-B Natriuret Pep (<450) pg/mL Total Protein (6.3-8.2) g/dL Albumin (3.5-5.0) g/dL Globulin (1.7-4.1) g/dL Albumin/Globulin Ratio (1.0-2.8) Procalcitonin < 0.05 (<0.5) ng/mL 07/31/20 07/31/20 07/31/20 Range/Units 18:45 18:45 18:45 WBC (4.5-11.0) X10^3/uL RBC (4.5-5.9) X10^6/uL Hgb (13.5-17.5) g/dL Hct (41-53) % MCV (80-100) fL MCH (26-34) PG MCHC (30-36) % RDW (11.6-14.8) % Plt Count (150-400) X10^3/uL Neut % (Auto) (50-75) % Lymph % (Auto) (25-40) % Upson % (Auto) (3-14) % Eos % (Auto) (2-4) % Baso % (Auto) (0-2) % Neut # (Auto) (0432-2569) /uL Lymph # (Auto) (6288-3831) /uL Upson # (Auto) (0-900) /uL Eos # (Auto) (0-450) /uL Baso # (Auto) (0-100) /uL D-Dimer (<230) ng/mL Sodium 139 (137-145) mmol/L Potassium 4.5 (3.4-5.1) mmol/L Chloride 106 (98-107) mmol/L Carbon Dioxide 30 (22-32) mmol/L BUN 26 H (9-20) mg/dL Creatinine 1.25 (0.66-1.25) mg/dL Estimated GFR 56.0 L (>60) mL/min BUN/Creatinine Ratio 20.8 (6-22) Glucose 90 (80-110) mg/dL Lactate 1.0 (0.7-2.1) mmol/L Calcium 8.6 (8.4-10.2) mg/dL Magnesium 2.0 (1.6-2.3) mg/dL Ferritin 70 (18-464) ng/mL Total Bilirubin 0.4 (0.2-1.3) mg/dL AST 46 (17-59) IU/L ALT 26 (<50) IU/L Alkaline Phosphatase 105 (38-126) U/L Lactate Dehydrogenase 323 (313-618) U/L Total Creatine Kinase 59 (55-170) U/L CK-MB (CK-2) TNP CK-MB (CK-2) Rel Index TNP Troponin I < 0.012 (0.01-0.034) ng/mL C-Reactive Protein 1.3 H (<1.0) mg/dL NT-Pro-B Natriuret Pep 131 (<450) pg/mL Total Protein 7.1 (6.3-8.2) g/dL Albumin 3.7 (3.5-5.0) g/dL Globulin 3.4 (1.7-4.1) g/dL Albumin/Globulin Ratio 1.1 (1.0-2.8) Procalcitonin (<0.5) ng/mL MDM Narrative Medical decision making narrative: 79M with hx of COPD and lung CA presents with COVID+ from outpatient facility. Profoundly dyspneic with minimal exertion, but not hypoxic and not requriing supplemental O2. Given high risk COVID-GRAM Risk Score and classification of Moderate Illness (ACEP/NIH) he will require hospitalization for ongoing monitorying and evatluation. He stands significant risk of deterioration. No oxygen requirements therefore no Dex or Remdesivir Discharge Plan Departure Patient Disposition: Admitted as Observation Clinical Impression: Pneumonia due to 2019 novel coronavirus Admit Date/Time: 07/31/20 20:00 Admit Provider: Naseem Jaeger
[2020-07-31 19:27] LABS: Alanine Aminotransferase 26 IU/L (<50); Albumin 3.7 g/dL (3.5-5.0); Albumin Globulin Ratio 1.1 (1.0-2.8); Alkaline Phosphatase 105 U/L (38-126); Aspartate Aminotransferase 46 IU/L (17-59); BUN Creatinine Ratio 20.8 (6-22); Bilirubin Total 0.4 mg/dL (0.2-1.3); Blood Urea Nitrogen 26 mg/dL (9-20); C-Reactive Protein Quant 1.3 mg/dL (<1.0); Calcium 8.6 mg/dL (8.4-10.2); Carbon Dioxide 30 mmol/L (22-32); Chloride 106 mmol/L (98-107); Creatine Kinase 59 U/L (55-170); Globulin 3.4 g/dL (1.7-4.1); Glucose 90 mg/dL (80-110); HEMOLYSIS < 15 (0-50); Lactate Dehydrogenase 323 U/L (313-618); Potassium 4.5 mmol/L (3.4-5.1); Sodium 139 mmol/L (137-145); Total Protein 7.1 g/dL (6.3-8.2)
[2020-07-31 19:37] LABS: NT-proBNP (BNP-Adult 18+) 131 pg/mL (<450); Troponin I < 0.012 ng/mL (0.01-0.034)
[2020-07-31 19:49] LABS: Add Manual Diff / Slide Review NO; Basophils Absolute Auto 0 /uL (0-100); Basophils Percent Auto 0.8 % (0-2); Eosinophils Absolute Auto 0 /uL (0-450); Eosinophils Percent Auto 1.3 % (2-4); Lymphocytes Absolute Auto 1000 /uL (1100-4500); Lymphocytes Percent Auto 28.4 % (25-40); Mean Corpuscular Hemoglobin 32.1 PG (26-34); Mean Corpuscular Volume 94.4 fL (80-100); Monocytes Absolute Auto 500 /uL (0-900); Neutrophils Absolute Auto 1800 /uL (1500-7000); Neutrophils Percent Auto 54.5 % (50-75); Platelet Count 190 X10^3/uL (150-400); Red Blood Cell Count 4.35 X10^6/uL (4.5-5.9); Red Cell Distribution Width 13.2 % (11.6-14.8); White Blood Cell Count 3.3 X10^3/uL (4.5-11.0)
[2020-07-31 19:52] LABS: D Dimer < 200 ng/mL (<230)
[2020-07-31 20:00] LABS: Ferritin 70 ng/mL (18-464)
[2020-07-31 20:25] LABS: Procalcitonin < 0.05 ng/mL (<0.5)
[2020-07-31 20:41] LABS: COVID19 -Nasal RAPID POSITIVE (Negative)
[2020-07-31] MEDS: ACETAMINOPHEN 325 MG TABLET 650 MG PO (20:49)
[2020-07-31 21:52] LABS: Adenovirus Not Detected (Not Detect); Bordetella pertussis Not Detected (Not Detect); Chlamydophila pneumoniae Not Detected (Not Detect); Coronavirus 229E Not Detected (Not Detect); Coronavirus HKU1 Not Detected (Not Detect); Coronavirus NL 63 Not Detected (Not Detect); Coronavirus OC43 Not Detected (Not Detect); Human Metapneumovirus Not Detected (Not Detect); Human Rhinovirus/Enterovirus Not Detected (Not Detect); Influenza A Not Detected (Not Detect); Influenza B Not Detected (Not Detect); Parainfluenza Virus 1 Not Detected (Not Detect); Parainfluenza Virus 2 Not Detected (Not Detect); Parainfluenza Virus 3 Not Detected (Not Detect); Parainfluenza Virus 4 Not Detected (Not Detect); Respiratory Syncytial Virus Not Detected (Not Detect); SARS- CoV-2 Detected (Not Detecte)
[2020-07-31 21:53] LABS: Mycoplasma pneumoniae Not Detected (Not Detect)
--- NOTE | 2020-07-31 22:47 | PM.HP.1 ---
History of Present Illness History of Present Illness Date Patient Seen: 07/31/20 Time Patient Seen: 22:06 Chief complaint: covid positive Narrative: Mr. Marsha Stark is a 79-year-old male who was a former smoker with a past medical history significant for lung cancer (10/2018) with postoperative atrial fibrillation, postoperative lung abscess (03/2019), hypertension, hiatal hernia status post repair and anger outbursts who presents to the ER following being testing positive for COVID-19 and history lung cancer and lung resection at the urging of his daughter. The patient's is also COVID positive. He complains of body aches all over and shortness of breath with activity. He denies feeling feverish or chills. He reports he had the right lower lobe of his lung removed for lung cancer after which he had atrial fibrillation that was treated with metoprolol however the patient discontinued taking the medication per himself related to side effects. He endorses chest wall pain from coughing and has had no palpitations. Following his lung surgery he had a chronic cough that was productive that has since cleared and down source of dry nonproductive cough. He has had no epigastric or abdominal pain. He has had no nausea and states he does not vomit since he has had his hiatal hernia repaired. He denies constipation instead reports having diarrhea taking Imodium earlier today. Patient denies difficulty urinating however states it carrera when he he voids. 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 He reports neuropathy in bilateral toes. Upon arrival to the ER the patient's temperature 98.2?, heart rate of 59, blood pressure 161/75, respirations 20 saturating 98% on room air. Chest x-rays taken read by Radiology as questionable mild bilateral airspace opacities without consolidation, no effusion or pneumothorax. Twelve lead EKG is a sinus bradycardia at a rate of 49 without ectopy or block, left axis shift, no ST or T-wave abnormality. On laboratory analysis the patient has an blowing count at 3.3 with absolute lymphs at 1000, hemoglobin 14.4, hematocrit of 41.0 and platelets 190. His electrolytes are all within normal limits and has a BUN of 26 and creatinine 1.25 for and EGFR of 56. His nonfasting glucose is 90 mg/dL. His liver functions are all within normal limits. Respiratory panel is obtained is only positive for SARS-CoV-2 and has elevated CRP at 1.3, LDH is 223, ferritin is 70, D-dimer is less than 200, lactic acid is 1.0, procalcitonin is less than 0.05, total CK is 59, troponin is less than 0.012 and proBNP is 131. COVID-GRAM risk score is 70.8% risk of critical illness placing in the high risk category based on a minimally abnormal x-ray, no hemoptysis, no dyspnea at rest however dyspnea with exertion and 2 coma mid 80s including a history cancer with a NLRf 1.8. The patient is not on oxygen and not appropriate for dexamethasone remdesivir however is admitted to the hospitalist team due to the risk of decompensation. Patient History Medical History Atrial fibrillation Excessive anger Hypertension Lung abscess Lung cancer Polyneuropathy Surgical History History of cataract surgery History of lung surgery History of repair of hiatal hernia Family & Social History Family History Father No problems noted. Mother Pulmonary fibrosis Hypertriglyceridemia, familial Safety & Behavioral: Feels Safe in Current Yes Environment Been Physically Hurt or No Threatened By a Person Tobacco & Substance use: Smoking Status Former smoker alcohol intake frequency a few times a month Substance Use Type marijuana Meds Home Medications and Allergies Home Medications Medication Instructions Recorded Confirmed Type amlodipine 5 mg PO DAILY 07/31/20 07/31/20 History indomethacin 50 mg PO BID 07/31/20 07/31/20 History trazodone 25 mg PO DAILY 07/31/20 07/31/20 History citalopram 20 mg PO DAILY 08/01/20 08/01/20 History citalopram 40 mg PO DAILY 08/01/20 08/01/20 History Allergies Allergy/AdvReac Type Severity Reaction Status Date / Time No Known Drug Allergies Allergy Verified 07/31/20 16:33 Review of Systems Review of Systems ROS: Yes All systems reviewed with the patient and are negative except as otherwise documented Exam Vital Signs (past 8 hours): - 07/31/20 16:33 07/31/20 17:49 07/31/20 18:00 Temperature 98.2 F Pulse Rate 59 L 55 L 52 L Respiratory Rate 20 18 16 Blood Pressure 161/75 H 146/78 H 134/68 Pulse Oximetry 99 98 98 07/31/20 18:30 07/31/20 18:50 07/31/20 19:00 Temperature Pulse Rate 56 L 56 L 55 L Respiratory Rate 18 18 Blood Pressure 143/77 H 146/76 H Pulse Oximetry 98 98 98 07/31/20 19:30 07/31/20 20:00 07/31/20 20:30 Temperature Pulse Rate 52 L 52 L 53 L Respiratory Rate Blood Pressure 138/65 156/66 H 136/64 Pulse Oximetry 97 97 97 07/31/20 21:00 07/31/20 21:30 Temperature Pulse Rate 52 L 48 L Respiratory Rate Blood Pressure 142/67 H 154/72 H Pulse Oximetry 96 97 Oxygen Delivery Method Room Air Narrative Exam Narrative: GENERAL APPEARANCE: well developed, well nourished, elderly male who is conversant without dyspnea at rest. HEENT: Normocephalic, PERRLA, conjunctiva clear, EOMs intact without nystagmus, mucous membranes are moist and pink without lesions or exudate. NECK/THYROID: neck supple nontender to palpation, no JVD, no carotid bruit, no thyromegaly, trachea midline. LYMPH NODES: no cervical or supraclavicular lymphadenopathy. SKIN: [place], warm and dry, no visible lesions, rashes, ulcerations or petechiae. HEART: Bradycardic rate with regular rhythm, S1-S2, no murmur, no rubs or gallops, brisk capillary refill, no edema. LUNGS: Breath sounds with bibasilar crackles, no coarseness or or wheezing, no cough present. CHEST: Symmetrical movement, no accessory muscle use, good tidal volume. ABDOMEN: Soft, round no distention, no epigastric or abdominal tenderness, no organomegaly, no flank tenderness, active bowel tones. BACK: Nontender to palpation. EXTREMITIES: moves all extremities, strength is 5/5 and symmetrical, no deformities or joint effusions. NEUROLOGIC: AAO x4, no focal neurologic deficits, cranial nerves II-XII grossly intact, neuropathy to bilateral toes hearing grossly normal to speech. PSYCH: Conversant and cooperative, appropriate with stable behavior. Objective Labs Result Diagrams: 07/31/20 18:45 07/31/20 18:45 Labs: Laboratory Results - last 24 hr 07/31/20 07/31/20 07/31/20 18:45 18:45 18:45 WBC 3.3 L RBC 4.35 L Hgb 14.0 Hct 41.0 MCV 94.4 MCH 32.1 MCHC 34.0 RDW 13.2 Plt Count 190 Neut % (Auto) 54.5 Lymph % (Auto) 28.4 [place] % (Auto) 15.0 H Eos % (Auto) 1.3 L Baso % (Auto) 0.8 Neut # (Auto) 1800 Lymph # (Auto) 1000 L [place] # (Auto) 500 Eos # (Auto) 0 Baso # (Auto) 0 D-Dimer < 200 Sodium Potassium Chloride Carbon Dioxide BUN Creatinine Estimated GFR BUN/Creatinine Ratio Glucose Lactate Calcium Ferritin Total Bilirubin AST ALT Alkaline Phosphatase Lactate Dehydrogenase Total Creatine Kinase CK-MB (CK-2) CK-MB (CK-2) Rel Index Troponin I C-Reactive Protein NT-Pro-B Natriuret Pep Total Protein Albumin Globulin Albumin/Globulin Ratio Procalcitonin < 0.05 Chlamy pneumoniae PCR Adenovirus (PCR) B.parapertussis DNA PCR Coronavirus OC43 (PCR) Coronavirus HKU1 (PCR) Coronavirus 229E (PCR) SARS-CoV-2 (PCR) Coronavirus NL63 (PCR) Human Metapneumovir PCR Influenza Type A (PCR) Influenza Type B (PCR) M. pneumoniae (PCR) Parainfluenza 1 (PCR) Parainfluenza 2 (PCR) Parainfluenza 3 (PCR) Parainfluenza 4 (PCR) RSV (PCR) Entero/Rhino (PCR) 07/31/20 07/31/20 07/31/20 18:45 18:45 20:10 WBC RBC Hgb Hct MCV MCH MCHC RDW Plt Count Neut % (Auto) Lymph % (Auto) [place] % (Auto) Eos % (Auto) Baso % (Auto) Neut # (Auto) Lymph # (Auto) [place] # (Auto) Eos # (Auto) Baso # (Auto) D-Dimer Sodium 139 Potassium 4.5 Chloride 106 Carbon Dioxide 30 BUN 26 H Creatinine 1.25 Estimated GFR 56.0 L BUN/Creatinine Ratio 20.8 Glucose 90 Lactate 1.0 Calcium 8.6 Ferritin 70 Total Bilirubin 0.4 AST 46 ALT 26 Alkaline Phosphatase 105 Lactate Dehydrogenase 323 Total Creatine Kinase 59 CK-MB (CK-2) TNP CK-MB (CK-2) Rel Index TNP Troponin I < 0.012 C-Reactive Protein 1.3 H NT-Pro-B Natriuret Pep 131 Total Protein 7.1 Albumin 3.7 Globulin 3.4 Albumin/Globulin Ratio 1.1 Procalcitonin Chlamy pneumoniae PCR Adenovirus (PCR) B.parapertussis DNA PCR Coronavirus OC43 (PCR) Coronavirus HKU1 (PCR) Coronavirus 229E (PCR) SARS-CoV-2 (PCR) Positive H Coronavirus NL63 (PCR) Human Metapneumovir PCR Influenza Type A (PCR) Influenza Type B (PCR) M. pneumoniae (PCR) Parainfluenza 1 (PCR) Parainfluenza 2 (PCR) Parainfluenza 3 (PCR) Parainfluenza 4 (PCR) RSV (PCR) Entero/Rhino (PCR) 07/31/20 20:50 WBC RBC Hgb Hct MCV MCH MCHC RDW Plt Count Neut % (Auto) Lymph % (Auto) [place] % (Auto) Eos % (Auto) Baso % (Auto) Neut # (Auto) Lymph # (Auto) [place] # (Auto) Eos # (Auto) Baso # (Auto) D-Dimer Sodium Potassium Chloride Carbon Dioxide BUN Creatinine Estimated GFR BUN/Creatinine Ratio Glucose Lactate Calcium Ferritin Total Bilirubin AST ALT Alkaline Phosphatase Lactate Dehydrogenase Total Creatine Kinase CK-MB (CK-2) CK-MB (CK-2) Rel Index Troponin I C-Reactive Protein NT-Pro-B Natriuret Pep Total Protein Albumin Globulin Albumin/Globulin Ratio Procalcitonin Chlamy pneumoniae PCR Not detected Adenovirus (PCR) Not detected B.parapertussis DNA PCR Not detected Coronavirus OC43 (PCR) Not detected Coronavirus HKU1 (PCR) Not detected Coronavirus 229E (PCR) Not detected SARS-CoV-2 (PCR) Detected H Coronavirus NL63 (PCR) Not detected Human Metapneumovir PCR Not detected Influenza Type A (PCR) Not detected Influenza Type B (PCR) Not detected M. pneumoniae (PCR) Not detected Parainfluenza 1 (PCR) Not detected Parainfluenza 2 (PCR) Not detected Parainfluenza 3 (PCR) Not detected Parainfluenza 4 (PCR) Not detected RSV (PCR) Not detected Entero/Rhino (PCR) Not detected Assessment & Plan Assessment & Plan narrative: This is a 79-year-old male patient who was a former smoker with a past medical history significant for lung cancer (10/2018) with postoperative atrial fibrillation, postoperative lung abscess (03/2019), hypertension, hiatal hernia status post repair and anger outbursts who presents to the ER following being testing positive for COVID-19 and history lung cancer and lung resection at the urging of his daughter with complaints of body aches and dyspnea. 1. COVID-19 pneumonia, acute, present on admission, active. -the patient has had symptoms for 10 days with progressive body aches for which the patient has been taking indomethacin and cough developing exertional dyspnea. The patient denies dyspnea at rest. -patient has a history of lung cancer with a right lobectomy presented with respiratory rate of 20 saturating 96-97% on room air. -chest x-ray questions mild bilateral airspace opacity, no consolidation a, effusion or pneumothorax. Crackles are appreciated bibasilar on auscultation, no wheezing present. -patient has a slightly low lymph count 1000, positive CRP of 1.3 however the rest of COVID markers within normal limits. Total CK is 59, troponin is less than 0.012 and proBNP is 131. -COVID-GRAM risk score is 70.8% risk of critical illness -the patient does not require oxygen therapy therefore dexamethasone and remdesivir not indicated. -discussed proning with the patient with recommendation attempting to prone for 8 out of 12 hours. -ordered supplemental oxygen as needed to keep saturation greater than 93% for initial therapy. 2. Hypertension, chronic, stable. -upon presentation to the ER the patient's blood pressure of 161/75. With blood pressure improving to the 140s to 150s systolic. -will continue amlodipine 5 mg daily with consideration for increasing dose to 10 mg daily. -will follow blood pressure trending 3. Atrial fibrillation, paroxysmal, chronic, stable. -patient with atrial fibrillation following his lobectomy 1 year ago. Patient reports no complaints of chest pain or palpitations. -12 lead EKG finds the patient vein sinus rhythm without ectopy or block, with left axis shift, no ST or T-wave changes. -the patient's rhythm is no longer medically treated, the patient previously took metoprolol which she discontinued due to side effects. 4. Lung cancer with right lower lobectomy, chronic, stable -chest x-ray questions mild bilateral airspace opacity, no consolidation a, effusion or pneumothorax. -the patient is not receiving chemo or radiation therapy. VTE prophylaxis: Enoxaparin 40 mg daily IV fluid: Saline lock Diet: Heart healthy Code status: Full code The patient is admitted to the hospital due to the severity of his complaints and the high risk for decompensation, complications and adverse events. The patient is admitted as an observation with expected length of stay to be less than 2 midnights. Scores GCS Iris coma scale eye opening: Spontaneous [place] coma scale verbal response: Orientated Iris coma scale motor response: Obey commands Iris coma scale total score: 15
[2020-07-31] MEDS: MELATONIN 3 MG TABLET 6 MG PO (23:48)
[2020-08-01] MEDS: FAMOTIDINE 20 MG TABLET PO ×2 (00:01→08:40)
[2020-08-01 00:03] VITALS: BMI 26.9
[2020-08-01 00:45] VITALS: BP 168/75; PULSE 51; RESP 16; TEMP 36.5; O2SAT 99
[2020-08-01] MEDS: TRAZODONE 50 MG TABLET 25 MG PO (01:03)
[2020-08-01] MEDS: CITALOPRAM 10 MG TABLET 20 MG PO (01:03)
[2020-08-01 01:19] LABS: WBC Urine None Seen (0-5/HPF)
[2020-08-01 01:29] LABS: Appearance Urine UA CLEAR; Bilirubin Urine UA NEGATIVE (NEGATIVE); Glucose Urine UA NEGATIVE (Negative); Ketones Urine UA NEGATIVE (NEGATIVE); Leukocyte Esterase Urine UA NEGATIVE (NEGATIVE); Nitrite Urine UA NEGATIVE (Negative); Occult Blood Urine UA 2+ (Negative); Protein Urine UA 2+ (Negative); Specific Gravity Urine UA >=1.030 (1.000-1.035); Urobilinogen Urine UA 0.2 E.U./dL (0.2)
[2020-08-01 01:31] LABS: Color Urine UA Dark Yellow
[2020-08-01 01:32] LABS: Amorphous Sediment Urine 1+; Bacteria Urine Occasional (0-1); RBC Urine 1-5/HPF (0-5/HPF); Squamous Epithelial Cell Urine 0-1 /HPF (0-5/HPF)
[2020-08-01 01:33] LABS: Culture Indicated Urine Cult Not Indicated; Hyaline Casts Urine 1-5/LPF
[2020-08-01 01:34] LABS: Sperm Urine Occasional
[2020-08-01 05:13] LABS: Add Manual Diff / Slide Review NO; Basophils Absolute Auto 0 /uL (0-100); Basophils Percent Auto 1.2 % (0-2); Eosinophils Absolute Auto 0 /uL (0-450); Eosinophils Percent Auto 1.4 % (2-4); Hematocrit 37.5 % (41-53); Lymphocytes Absolute Auto 1100 /uL (1100-4500); Lymphocytes Percent Auto 32.9 % (25-40); Mean Corpuscular HGB Conc 34.5 % (30-36); Mean Corpuscular Hemoglobin 32.1 PG (26-34); Monocytes Absolute Auto 500 /uL (0-900); Monocytes Percent Auto 16.9 % (3-14); Neutrophils Absolute Auto 1500 /uL (1500-7000); Neutrophils Percent Auto 47.6 % (50-75); Platelet Count 159 X10^3/uL (150-400); Red Blood Cell Count 4.04 X10^6/uL (4.5-5.9); Red Cell Distribution Width 12.9 % (11.6-14.8); White Blood Cell Count 3.3 X10^3/uL (4.5-11.0)
[2020-08-01 05:25] LABS: BUN Creatinine Ratio 25.2 (6-22); Blood Urea Nitrogen 26 mg/dL (9-20); Calcium 8.2 mg/dL (8.4-10.2); Carbon Dioxide 26 mmol/L (22-32); Chloride 110 mmol/L (98-107); Estimated Glomerular Filt Rate > 60.0 mL/min (>60); Glucose 95 mg/dL (80-110); HEMOLYSIS < 15 (0-50); Magnesium 2.1 mg/dL (1.6-2.3); Potassium 4.3 mmol/L (3.4-5.1); Sodium 137 mmol/L (137-145)
[2020-08-01 05:30] VITALS: BP 134/61; PULSE 65; RESP 25; TEMP 36.8; O2SAT 96
[2020-08-01 08:00] VITALS: BP 132/65; PULSE 50; RESP 19; TEMP 36.1; O2SAT 96
[2020-08-01] MEDS: CITALOPRAM 10 MG TABLET 40 MG PO (08:39)
[2020-08-01] MEDS: AMLODIPINE 5 MG TABLET PO (08:39)
[2020-08-01] MEDS: ENOXAPARIN 40 MG/0.4 ML SYRINGE SUBCUT (08:39)
[2020-08-01] MEDS: ACETAMINOPHEN 325 MG TABLET 650 MG PO (08:40)
[2020-08-01 09:26] LABS: Ferritin 62 ng/mL (18-464)
--- NOTE | 2020-08-01 10:36 | CM.DANOTE ---
Addendum entered by Kimi Dean LPN 08/01/20 13:12: Dr. Payne has been in to see pt and d/c paperwork is in process. Confirmed that pt drove himself here and plans to drive himself home and Dr. Payne states this will be fine. Pt will followup with his PCP. Addendum entered by Kimi Dean LPN 08/01/20 10:45: Pt is and per H&P his also is COVID+. He has history of lung cancer with resection. Original Note: Discharge Planning/Care Management DCP: assessment: case received, EMR reviewed COVID+ noted. Discussed case in Team Rounds with Dr. Payne stating pt would likely d/c home today as he has no need for supplemental oxygen and thus can be treated in the home setting.. Pt is a 79 year old male who admitted last evening to care of hospitalist team. PCP: Benitez Crook Payer: Medicare and [facility]. A dc order in now noted. Checked in with RN caring for pt. She stated that Dr. Payne has not yet talked with pt and pt is unaware of the dc order. He is currently lying in room in dark and c/o headache. P: Will be checking in with pt to followup on the dc planning process after he is seen by Dr. Payne. CM Discharge Assessment Start: 08/01/20 10:34 Freq: Status: Active Protocol: Document 08/01/20 10:34 ITV (Rec: 08/01/20 10:35 ITV [id number]) Discharge Planning Assessment Advance Directives? Yes History Provided By Medical Record Prior Living Arrangements House Household Members spouse Is patient alert and oriented? Yes Review Status In Process
[2020-08-01] MEDS: BUTALB/APAP/CAFFEINE 50/325/40 TABLET 1 EACH PO (11:41)
--- NOTE | 2020-08-01 14:14 | PC.NURSE ---
Discharge Note: Pt checked on and assessed. Pt received on RA, SPO2 92-97%. Pt denies SOB, lungs CTA. Pt complains of headache pain 9/10, body aches 7/10. Given tylenol with pain down to 5/10. Pt is alert and oriented. Dr. Payne reviewed pt's chart and assessed pt. Pt given discharge orders. Discharge teaching about infection control, what to do with worsening symptoms, follow up and medications given. Pt also given discharge instructions specific to Covid-19. Telemetry and iv removed prior to discharge. Pt discharged to private vehicle via wheelchair without incident.
--- NOTE | 2020-08-03 12:21 | P.DS_ITS ---
History of Present Illness History of Present Illness Date Patient Seen: 08/01/20 Time Patient Seen: 11:00 Chief complaint: covid positive Narrative: As per NENO Santiago: Mr. Marsha Stark is a 79-year-old male who was a former smoker with a past medical history significant for lung cancer (10/2018) with postoperative a trial fibrillation, postoperative lung abscess (03/2019), hypertension, hiatal hernia status post repair and anger outbursts who presents to the ER following being testing positive for COVID-19 and history lung cancer and lung resection at the urging of his daughter. The patient's is also COVID positive. He complains of body aches all over and shortness of breath with activity. He denies feeling feverish or chills. He reports he had the right lower lobe of his lung removed for lung cancer after which he had atrial fibrillation that was treated with metoprolol however the patient discontinued taking the medication per himself related to side effects. He endorses chest wall pain from coughing and has had no palpitations. Following his lung surgery he had a chronic cough that was productive that has since cleared and down source of dry nonproductive cough. He has had no epigastric or abdominal pain. He has had no nausea and states he does not vomit since he has had his hiatal hernia repaired. He denies constipation instead reports having diarrhea taking Imodium earlier today. Patient denies difficulty urinating however states it carrera when he he voids. 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 He reports neuropathy in bilateral toes. Upon arrival to the ER the patient's temperature 98.2?, heart rate of 59, blood pressure 161/75, respirations 20 saturating 98% on room air. Chest x-rays taken read by Radiology as questionable mild bilateral airspace opacities without consolidation, no effusion or pneumothorax. Twelve lead EKG is a sinus bradycardia at a rate of 49 without ectopy or block, left axis shift, no ST or T-wave abnormality. On laboratory analysis the patient has an blowing count at 3.3 with absolute lymphs at 1000, hemoglobin 14.4, hematocrit of 41.0 and platelets 190. His electrolytes are all within normal limits and has a BUN of 26 and creatinine 1.25 for and EGFR of 56. His nonfasting glucose is 90 mg/dL. His liver functions are all within normal limits. Respiratory panel is obtained is only positive for SARS-CoV-2 and has elevated CRP at 1.3, LDH is 223, ferritin is 70, D-dimer is less than 200, lactic acid is 1.0, procalcitonin is less than 0.05, total CK is 59, troponin is less than 0.012 and proBNP is 131. COVID-GRAM risk score is 70.8% risk of critical illness placing in the high risk category based on a minimally abnormal x-ray, no hemoptysis, no dyspnea at rest however dyspnea with exertion and 2 coma mid 80s including a history cancer with a NLRf 1.8. The patient is not on oxygen and not appropriate for dexamethasone remdesivir however is admitted to the hospitalist team due to the risk of decompensation. Discharge Providers Provider Date of admission: 07/31/20 20:00 Discharge Date: 08/01/20 Primary care physician: Benitez Crook MD Consults: 07/31/20 20:54 Consult to Discharge Planning Routine Comment: 08/01/20 00:38 Consult to Respiratory Therapy Evaluate & Treat Comment: COVID pneumonia Physician Instructions: Evaluate and treat Discharge provider: Naseem Payne DO Summary Hospital Course Discharge Diagnosis: 1. COVID-19 pneumonia, acute, present on admission, active. 2. Hypertension, chronic, stable. 3. Atrial fibrillation, paroxysmal, stable. 4. history of Lung cancer with right lower lobectomy, chronic, stable Hospital Course: This is a 79-year-old male patient who was a former smoker with a past medical history significant for lung cancer (10/2018) with postoperative atrial fibrillation, postoperative lung abscess (03/2019), hypertension, hiatal hernia status post repair and anger outbursts who presented to the ER following being testing positive for COVID-19 and history lung cancer and lung resection at the urging of his daughter with complaints of body aches and dyspnea. Given his history he was admitted overnight for observation to ensure no worsening symptoms. The following morning he felt slightly improved but still complained of muscle aches, but no further shortness of breath. He had minimal to no elevation in a variety of inflammatory markers. He was discharged home, I did recommend that he have his grandson deliver a pulse oximeter for further monitoring as an outpatient. I further recommended follow-up with his primary care provider via telehealth visit for continued monitoring and other potential treatment options that may be available as an outpatient. Exam Vital Signs (past 8 hours): Oxygen Delivery Method Room Air Oxygen Flow Rate 0 Narrative Exam Narrative: GENERAL APPEARANCE: well developed, well nourished, elderly male who is conversant without dyspnea at rest. HEENT: Normocephalic, PERRLA, conjunctiva clear, EOMs intact without nystagmus, mucous membranes are moist and pink without lesions or exudate. NECK/THYROID: neck supple nontender to palpation, no JVD, no carotid bruit, no thyromegaly, trachea midline. LYMPH NODES: no cervical or supraclavicular lymphadenopathy. SKIN: [place], warm and dry, no visible lesions, rashes, ulcerations or petechiae. HEART: Bradycardic rate with regular rhythm, S1-S2, no murmur, no rubs or gallops, brisk capillary refill, no edema. LUNGS: Breath sounds with bibasilar crackles, no coarseness or or wheezing, no cough present. CHEST: Symmetrical movement, no accessory muscle use, good tidal volume. ABDOMEN: Soft, round no distention, no epigastric or abdominal tenderness, no o rganomegaly, no flank tenderness, active bowel tones. BACK: Nontender to palpation. EXTREMITIES: moves all extremities, strength is 5/5 and symmetrical, no deformities or joint effusions. NEUROLOGIC: AAO x4, no focal neurologic deficits, cranial nerves II-XII grossly intact, neuropathy to bilateral toes hearing grossly normal to speech. PSYCH: Conversant and cooperative, appropriate with stable behavior. Objective Labs Result Diagrams: 08/01/20 04:54 08/01/20 04:54 [facility] Medical History Atrial fibrillation Excessive anger Hypertension Lung abscess Lung cancer Polyneuropathy Surgical History History of cataract surgery History of lung surgery History of repair of hiatal hernia Family History Father No problems noted. Mother Pulmonary fibrosis Hypertriglyceridemia, familial Social History household members: spouse Smoking Status: Former smoker alcohol intake: current Discharge Plan Discharge Plan Patient Disposition: Home Provider Discharge Comment: You were admitted to the hospital for observation with COVID 19. You did not worsen. Please obtain a pulse oximeter at home so that you can monitor your oxygen, it would be a good idea to have your grandson drop this off at your house. Please take tylenol in addition to your indomethacin at home. You can call your PMD to see if they have access to outpatient COVID treatment and if you qualify. Discharge orders & Medications Prescriptions: Continued trazodone 50 mg tablet 25 mg PO DAILY RF: 0 amlodipine 5 mg tablet 5 mg PO DAILY RF: 0 indomethacin 50 mg capsule 50 mg PO BID RF: 0 citalopram 20 mg tablet 20 mg PO DAILY RF: 0 citalopram 40 mg tablet 40 mg PO DAILY RF: 0 Follow up/Referrals: Benitez Crook MD [Primary Care Provider] - Diet/Activity/Treatments Diet: Diet as Tolerated Activity: As tolerated Skin/Wound/Dressing Care Report to your healthcare provider any signs of infection, such as:: chills, fever Visit Report/Discharge Packet Instructions: DI for COVID-19 (Suspected or Confirmed ) Discharge Data Primary Care Provider: Benitez Crook Attending Provider: Naseem Jaeger
== END 2020-08-01 13:30 | disposition home or self-care (01) ==
LOC: ED 18:06 → AC 20:00 → ICU 23:40
PROVIDERS: Internal Medicine; Admitting Provider Nurse Practitioner Adult Health; Emergency Provider Emergency Medicine; PCP Internal Medicine; Referring Provider Emergency Medicine; Visit Provider Nurse Practitioner Adult Health
DX: U07.1 COVID-19 (principal); J12.82 Pneumonia due to coronavirus disease 2019; R06.02 Shortness of breath; J44.9 Chronic obstructive pulmonary disease, unspecified; I48.0 Paroxysmal atrial fibrillation; Z85.118 Personal history of other malignant neoplasm of bronchus and lung; Z87.891 Personal history of nicotine dependence; I10 Essential (primary) hypertension; G62.9 Polyneuropathy, unspecified; Z90.2 Acquired absence of lung [part of]
CPT/HCPCS: 36415; 71046; 80048; 80053; 81001; 82550; 82728; 83605; 83615; 83735; 83880; 84145; 84484; 85025; 85379; 86140; 87040; 87633; 87635; 87797; 93005; 96372; 99283; 99284; C9803; G0378; A9270; J1650

== ENCOUNTER 2024-01-25 17:08 | Emergency (ER) | payer MEDICARE, OTHER, SELFPAY ==
[2024-01-25] VITALS (15 sets, daily range): BP systolic 105–135; BP diastolic 54–77; PULSE 48–70; RESP 11–20; TEMP 36.8–36.9; O2SAT 97–99; BMI 27.1
--- NOTE | 2024-01-25 17:25 | EKG_ITS ---
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
--- NOTE | 2024-01-25 17:25 | DI.RAD.S_ITS ---
PROCEDURE: XR CHEST 1V INDICATIONS: chest pain TECHNIQUE: One view of the chest was acquired. COMPARISON: [facility], CR, XR CHEST 2V, 07/31/2020, 16:49. FINDINGS: Surgical changes and devices: None. Lungs and pleura: Lungs are clear. No pleural effusions or pneumothorax. Mediastinum: Mediastinal contours appear normal. Heart size is normal. Bones and chest wall: No suspicious bony lesions. Overlying soft tissues appear unremarkable. IMPRESSION: No acute pulmonary process. Dictated by: Laureen Dugan M.D. on 01/25/2024 at 18:09 Approved by: Laureen Dugan M.D. on 01/25/2024 at 18:09
[2024-01-25] MEDS: KETOROLAC 30 MG/ML VIAL 15 MG IV (18:19)
[2024-01-25 18:20] LABS: Add Manual Diff / Slide Review NO; Basophils Absolute Auto 100 /uL (0-100); Basophils Percent Auto 0.9 % (0-2); Eosinophils Absolute Auto 200 /uL (0-450); Eosinophils Percent Auto 2.7 % (2-4); Hematocrit 33.5 % (41-53); Hemoglobin 11.5 g/dL (13.5-17.5); Lymphocytes Absolute Auto 1500 /uL (1100-4500); Lymphocytes Percent Auto 18.6 % (25-40); Mean Corpuscular HGB Conc 34.2 % (30-36); Mean Corpuscular Hemoglobin 33.5 PG (26-34); Monocytes Absolute Auto 900 /uL (0-900); Monocytes Percent Auto 10.7 % (3-14); Neutrophils Absolute Auto 5600 /uL (1500-7000); Neutrophils Percent Auto 67.1 % (50-75); Platelet Count 273 X10^3/uL (150-400); Red Blood Cell Count 3.42 X10^6/uL (4.5-5.9); Red Cell Distribution Width 12.8 % (11.6-14.8); White Blood Cell Count 8.3 X10^3/uL (4.5-11.0)
[2024-01-25 18:26] LABS: Prothrombin Time 11.9 SECONDS (9.4-12.5)
[2024-01-25 18:29] LABS: PTT Partial Thromboplastin Tim 34 SECONDS (25.1-36.5)
[2024-01-25 18:31] LABS: Alanine Aminotransferase 19 IU/L (<50); Albumin 3.7 g/dL (3.5-5.0); Albumin Globulin Ratio 1.1 (1.0-2.8); Alkaline Phosphatase 73 U/L (38-126); Aspartate Aminotransferase 23 IU/L (17-59); BUN Creatinine Ratio 22.5 (6-22); Bilirubin Total 0.3 mg/dL (0.2-1.3); Blood Urea Nitrogen 39 mg/dL (9-20); Calcium 8.8 mg/dL (8.4-10.2); Carbon Dioxide 22 mmol/L (22-32); Chloride 110 mmol/L (98-107); Creatine Kinase 42 U/L (55-170); Estimated Glomerular Filt Rate 39 mL/min (>60); Globulin 3.4 g/dL (1.7-4.1); Glucose 106 mg/dL (80-110); HEMOLYSIS < 15 (0-50); Lipase 91 U/L (23-300); Magnesium 2.2 mg/dL (1.6-2.3); Potassium 4.7 mmol/L (3.4-5.1); Sodium 137 mmol/L (137-145); Total Protein 7.1 g/dL (6.3-8.2)
[2024-01-25 18:42] LABS: NT-proBNP (BNP-Adult 18+) 89 pg/mL (<450); Troponin I < 0.012 ng/mL (0.01-0.034)
--- NOTE | 2024-01-25 18:49 | ED.BACK ---
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 History of prior kidney stones. Denies painful urination, blood in the urine, fevers or chills, flank pain. No prior back surgeries. No prior back fractures known. He has not been coughing, denies shortness of breath or chest pain. No new activities, fall, trauma. [id number]-[id number] medications not helping with this pain, prescribed indomethacin on triage med list for gouty flares not taken recently. Related Data Home Medications Medication Instructions Recorded Confirmed amlodipine 5 mg tablet 5 mg PO DAILY 07/31/20 07/31/20 indomethacin 50 mg capsule 50 mg PO BID 07/31/20 07/31/20 trazodone 50 mg tablet 25 mg PO DAILY 07/31/20 07/31/20 citalopram 20 mg tablet 20 mg PO DAILY 08/01/20 08/01/20 citalopram 40 mg tablet 40 mg PO DAILY 08/01/20 08/01/20 Previous Rx's Medication Instructions Recorded methocarbamol 500 mg tablet 500 mg PO TID rhomboid muscle 01/25/24 strain 7 days #21 tabs Allergies Allergy/AdvReac Type Severity Reaction Status Date / Time No Known Drug Allergies Allergy Verified 01/25/24 17:17 Review of Systems Review of Systems Narrative: See HPI Patient History Medical History Atrial fibrillation Excessive anger Hypertension Lung abscess Lung cancer Polyneuropathy Surgical History History of cataract surgery History of lung surgery History of repair of hiatal hernia Family History Father No problems noted. Mother Pulmonary fibrosis Hypertriglyceridemia, familial Social History household members: spouse Smoking Status: Former smoker alcohol intake: current Smoking Status: Former smoker alcohol intake frequency: other Substance Use Type: does not use Exam Narrative Exam Narrative: GENERAL: Well-developed patient, in mild distress. HEAD: Atraumatic. Normocephalic. EYES: Pupils equal round and reactive. Extraocular motions intact. No scleral icterus. No injection or drainage. ENT: Nose without bleeding, purulent drainage. Throat without erythema, tonsillar hypertrophy or exudate. Airway patent. NECK: Trachea midline. Non tender CARDIOVASCULAR: Regular rate and rhythm without murmurs, gallops, or rubs. RESPIRATORY: Clear to auscultation. Breath sounds equal bilaterally. No wheezes, rales, or rhonchi. GASTROINTESTINAL: Abdomen soft, non-tender, nondistended. EXTREMITIES: No edema or joint tenderness. BACK: Nontender without deformity or crepitance. No flank tenderness. No tenderness to lumbar spine, midline or paraspinal musculature, no tenderness to thoracic spine, midline or paraspinal musculature. No skin rash or vesicles. No midline or other scars along or near the spine, nor posterior thorax. NEURO: AOx3. SKIN: No rash or erythema of visible areas Initial Vital Signs Initial Vital Signs: Vital Signs Temperature 98.3 F 01/25/24 17:11 Pulse Rate 69 01/25/24 17:11 Respiratory Rate 16 01/25/24 17:11 Blood Pressure 124/59 L 01/25/24 17:11 Pulse Oximetry 98 01/25/24 17:11 Oxygen Delivery Method Room Air 01/25/24 17:11 Course Orders Ordered: Discontinued Medications Aspirin (Aspirin 81 Mg Chew Tab) 324 mg PO NOW ONE Stop: 01/25/24 17:26 Last Admin: 01/25/24 18:59 Dose: Not Given Documented By: JODIE Diltiazem HCl (Diltiazem 25 Mg/5 Ml Sdv) 20 mg IV NOW ONE Stop: 01/25/24 19:57 Last Admin: 01/25/24 20:08 Dose: Not Given Documented By: THAO Hydromorphone HCl (Hydromorphone 0.5 Mg Inj) 0.5 mg IV NOW ONE Stop: 01/25/24 19:11 Last Admin: 01/25/24 19:24 Dose: 0.5 mg Documented By: JODIE DILTIAZEM (Diltiazem 125 Mg/125 Ml-D5w) 125 mg in 125 mls @ 5 mls/hr IV TITRATE BETH; Protocol Last Admin: 01/25/24 20:08 Dose: Not Given Documented By: THAO Ketorolac Tromethamine (Ketorolac 30 Mg/Ml Vial) 15 mg IV NOW ONE Stop: 01/25/24 18:14 Last Admin: 01/25/24 18:19 Dose: 15 mg Documented By: JODIE Ondansetron HCl (Ondansetron 4 Mg/2 Ml Inj) 4 mg IV NOW ONE Stop: 01/25/24 19:13 Last Admin: 01/25/24 19:24 Dose: 4 mg Documented By: JODIE Vital Signs Vital signs: Vital Signs - 8 hr 01/25/24 17:11 01/25/24 17:28 01/25/24 17:29 Temperature 98.3 F Pulse Rate 69 70 Respiratory Rate 16 Blood Pressure 124/59 L 105/54 L Pulse Oximetry 98 98 Oxygen Delivery Method Room Air 01/25/24 17:30 01/25/24 18:00 01/25/24 18:30 Temperature Pulse Rate 64 63 52 L Respiratory Rate 15 17 Blood Pressure Pulse Oximetry 98 98 98 Oxygen Delivery Method 01/25/24 18:44 01/25/24 18:44 01/25/24 19:00 Temperature Pulse Rate 50 L Respiratory Rate 15 Blood Pressure 111/57 L 120/55 L Pulse Oximetry 99 Oxygen Delivery Method 01/25/24 19:00 Temperature Pulse Rate 50 L Respiratory Rate 16 Blood Pressure Pulse Oximetry 98 Oxygen Delivery Method MDM - Back Pain/Injury Lab Data Attestation: I reviewed the patient's lab results. 01/25/24 18:10 01/25/24 18:10 Labs: Lab Results 01/25/24 Range/Units 18:10 WBC 8.3 (4.5-11.0) X10^3/uL RBC 3.42 L (4.5-5.9) X10^6/uL Hgb 11.5 L (13.5-17.5) g/dL Hct 33.5 L (41-53) % MCV 98.0 (80-100) fL MCH 33.5 (26-34) PG MCHC 34.2 (30-36) % RDW 12.8 (11.6-14.8) % Plt Count 273 (150-400) X10^3/uL Neut % (Auto) 67.1 (50-75) % Lymph % (Auto) 18.6 L (25-40) % [place] % (Auto) 10.7 (3-14) % Eos % (Auto) 2.7 (2-4) % Baso % (Auto) 0.9 (0-2) % Neut # (Auto) 5600 (4689-4893) /uL Lymph # (Auto) 1500 (3458-3501) /uL [place] # (Auto) 900 (0-900) /uL Eos # (Auto) 200 (0-450) /uL Baso # (Auto) 100 (0-100) /uL PT 11.9 (9.4-12.5) SECONDS INR 1.0 (0.9-1.3) APTT 34 (25.1-36.5) SECONDS Sodium 137 (137-145) mmol/L Potassium 4.7 (3.4-5.1) mmol/L Chloride 110 H (98-107) mmol/L Carbon Dioxide 22 (22-32) mmol/L BUN 39 H (9-20) mg/dL Creatinine 1.73 H (0.66-1.25) mg/dL Estimated GFR 39 L (>60) mL/min BUN/Creatinine Ratio 22.5 H (6-22) Glucose 106 (80-110) mg/dL Calcium 8.8 (8.4-10.2) mg/dL Magnesium 2.2 (1.6-2.3) mg/dL Total Bilirubin 0.3 (0.2-1.3) mg/dL AST 23 (17-59) IU/L ALT 19 (<50) IU/L Alkaline Phosphatase 73 (38-126) U/L Total Creatine Kinase 42 L (55-170) U/L Troponin I < 0.012 (0.01-0.034) ng/mL NT-Pro-B Natriuret Pep 89 (<450) pg/mL Total Protein 7.1 (6.3-8.2) g/dL Albumin 3.7 (3.5-5.0) g/dL Globulin 3.4 (1.7-4.1) g/dL Albumin/Globulin Ratio 1.1 (1.0-2.8) Lipase 91 (23-300) U/L Imaging Data Chest x-ray: Radiologist's Impression: [address] [address] XRay Report Signed Patient: Marsha Stark MR#: [id number] : 1940 Acct:[id number] Age/Sex: 83 / M Date of Service: 01/25/24 Loc: ED Accession Number: [id number] Procedure: XR chest 1V Ordering Provider: Quita Akbar D.O. PROCEDURE: XR CHEST 1V INDICATIONS: chest pain TECHNIQUE: One view of the chest was acquired. COMPARISON: [facility], CR, XR CHEST 2V, 07/31/2020, 16:49. FINDINGS: Surgical changes and devices: None. Lungs and pleura: Lungs are clear. No pleural effusions or pneumothorax. Mediastinum: Mediastinal contours appear normal. Heart size is normal. Bones and chest wall: No suspicious bony lesions. Overlying soft tissues appear unremarkable. IMPRESSION: No acute pulmonary process. Dictated by: Laureen Dugan M.D. on 01/25/2024 at 18:09 Approved by: Laureen Dugan M.D. on 01/25/2024 at 18:09 ECG Data Attestation: I personally reviewed and interpreted this ECG as follows: Interpretation: Normal sinus rhythm with rate of 64, no obvious ST segment elevation or depression changes. GA 202, QRS 78, QTC 449. 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 Consider referred pain from anterior process. Afebrile, sirs screen negative. Screening labs unremarkable. History of kidney stones noted. Urinalysis pending. CT abdomen and pelvis imaging ordered CT no acute changes, see radiology report. CXR negative. Labs unremarkable, creat 1.7 noted. UA negative. 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 He seemed amenable to this approach, home with family. Return precautions discussed Critical Care Time Critical Care Time Critical Care Time: Yes Total Critical Care Time: 31 Attestation: The high probability of a clinically significant, sudden or life threatening deterioration of the [abdominopelvic, gastrointenstinal, genitourinary, cardiovascular] system(s) required my full and direct attention, intervention and personal management. The aggregate critical care time was [31] minutes. This time is in addition to time spent performing reported procedures but includes the following: [x] Data Review and interpretation [x] Patient assessment and monitoring of vital signs [x] Documentation [x] Medication orders and management Discharge Plan Departure Patient Disposition: Home Clinical Impression: Back pain, Diverticulosis, Constipation Instructions: DI for Low Back Pain, DI for Constipation Activity Restrictions/Additional Instructions: Low back pain, no anterior abdominal discomfort, no injury recalled however you do frequently lean forward at your job as a sharp manner. No tenderness midline or paraspinous musculature on exam in the low back area. CT abdomen and pelvis imaging done, no acute changes noted, you do have diverticulosis but not infection diverticulitis changes at this time, and there was a fair amount of stool, consider constipation. No obstruction of the bowels at this time. No acute process at this time. Continue your indomethacin medication. Could consider opiate pain medication but that tends to be constipated in could exacerbate your symptoms if they are related to constipation. Consider use of phos-yvn-lnhopme laxative such as MiraLax or magnesium citrate. Consider use of mild muscle relaxant methocarbamol/Robaxin, prescription sent to your pharmacy, to use if you would like to try this. Recheck symptoms Sunday early this week with your regular provider. Return earlier to this/nearest emergency department for any change or worsening symptoms or any concerns prior Prescriptions: New methocarbamol 500 mg tablet 500 mg PO TID 7 Days Qty: 21 0RF No Action trazodone 50 mg tablet 25 mg PO DAILY amlodipine 5 mg tablet 5 mg PO DAILY indomethacin 50 mg capsule 50 mg PO BID citalopram 20 mg tablet 20 mg PO DAILY citalopram 40 mg tablet 40 mg PO DAILY Referrals: Benitez Crook MD [Primary Care Provider] - Stand Alone Forms: Patient Portal/API
--- NOTE | 2024-01-25 19:08 | DI.CT.S_ITS ---
PROCEDURE: CT ABDOMEN PELVIS WO CON INDICATIONS: back pain, ?stones TECHNIQUE: Axial sections were acquired from the lung bases to the pubic symphysis. Coronal and sagittal reformats were performed. For radiation dose reduction, the following was used: automated exposure control, adjustment of mA and/or kV according to patient size. COMPARISON: None. FINDINGS: Image quality: Diagnostic. Lower Chest: Minimal bibasilar interstitial fibrosis. Mild cardiomegaly. No pleural or pericardial effusion. URINARY: Right Kidney: No stones or hydronephrosis. Partially exophytic hypodensity arising the midpole. Right Ureter: No hydroureter, ureteral calculus, or periureteric inflammation. Left Kidney: Several partially exophytic cysts arising from the anterior upper pole. No stones or hydronephrosis. Left Ureter: No hydroureter, ureteral calculus, or periureteric inflammation. Bladder: Normal wall thickness. No stones. ABDOMEN: Liver: No contour-deforming solid mass. Gallbladder: No wall thickening or calcified stones. Biliary ducts: No biliary dilation. Pancreas: Scattered punctate glandular calcifications. No visible ductal dilatation. Spleen: Size is within normal limits. Adrenal Glands: No adrenal nodules. Stomach and Bowel: Stomach and small bowel loops are normal caliber. Normal appendix. Increased quantity of solid stool present. Extensive sigmoid diverticulosis no acute inflammation. Peritoneum: No abnormal intraperitoneal fluid. No free air. Ventral Wall: Tiny fat containing umbilical hernia. Abdominal Nodes: No enlarged retroperitoneal or mesenteric lymph nodes. Vessels: Aorta and inferior vena cava are normal in size. Moderate abdominal aortic atherosclerotic calcification. PELVIS: Pelvic Organs: Moderate prostatomegaly. Pelvic Nodes: Unremarkable. Miscellaneous: Tiny fat containing bilateral inguinal hernias. Bones: There is severe multilevel disc height loss throughout the lumbar spine and grade 1 retrolisthesis from L1 through L5. No fractures or suspicious bone lesions. IMPRESSION: No urinary obstruction or urinary calcifications. Findings of chronic pancreatitis. No acute inflammation. Increased quantity of solid stool. Sigmoid diverticulosis without acute diverticulitis. Dictated by: Veronica Kahn M.D. on 01/25/2024 at 20:23 Approved by: Veronica Kahn M.D. on 01/25/2024 at 20:31
[2024-01-25] MEDS: HYDROMORPHONE 0.5 MG INJ IV (19:24)
[2024-01-25] MEDS: ONDANSETRON 4 MG/2 ML INJ IV (19:24)
== END 2024-01-25 22:40 | disposition home or self-care (01) ==
PROVIDERS: Emergency Medicine; Emergency Provider Emergency Medicine; PCP Internal Medicine
DX: K57.90 Diverticulosis of intestine, part unspecified, without perforation or abscess without bleeding (principal); M54.50 Low back pain, unspecified; K59.00 Constipation, unspecified; R07.9 Chest pain, unspecified
CPT/HCPCS: 36415; 71045; 74176; 80053; 82550; 83690; 83735; 83880; 84484; 85025; 85610; 85730; 93005; 96374; 96375; 99284; J1170; J1885; J2405